=== PATIENT | male | born 1970 | race Caucasian/White ===

== ENCOUNTER 2021-02-07 08:46 | Emergency (ER) | payer OTHER, SELFPAY ==
--- NOTE | 2021-02-07 09:19 | XR_ITS ---
WS: [id number] Portable AP upright chest, 02/07/2021 Clinical Data: cough, COVID Comparison: None. Findings: No nodules, masses or effusions are seen. The heart is normal. The pulmonary vascularity is not increased. No pneumonia or pneumothorax is seen. The aortic arch and descending thoracic aorta s how tortuosity. The diaphragms are flattened. XR/XR chest 1V portable [id number] Impression: Atherosclerosis and hyperinflation.
[2021-02-07 10:01] VITALS: BP 146/88; PULSE 84; RESP 18; TEMP 36.8; O2SAT 95; BMI 33.1
--- NOTE | 2021-02-07 10:12 | ED_ITS ---
HPI - COVID General: Chief Complaint: COVID symptoms Stated Complaint: COVID + Time Seen by Provider: 02/07/21 10:00 Source: patient Mode of arrival: ambulatory Limitations: no limitations Triage information: Has fever, cough or shortness of breath . Exposure to COVID + person last 14 days History of Present Illness: HPI Narrative: Patient is a 50-year-old male who presents to ED today requesting Covid testing for Covid-like symptoms and positive exposure. Patient states his recently tested positive for Covid. Yesterday he began having low-grade fevers and body aches. Son arrives with patient who is also being seen for similar symptoms. MD complaint: has COVID symptoms Prior covid testing: no COVID 19 common symptoms: positive fever(s) and body aches; negative dyspnea, fatigue, headache(s), throat pain, nasal congestion, nausea, vomiting or diarrhea COVID 19 other sytmptoms: negative chest pain Severity: mild COVID Results: No Data to Display Review of Systems Const: Reports: fever(s) and body aches; Denies: fatigue or malaise Eyes: Denies: change in vision or photophobia ENMT: Denies: throat pain, odynophagia, nasal discharge, nasal congestion, post nasal drip or sinus pain Card: Denies: chest pain, palpitations, irregular heart rhythm, edema, syncope or pre-syncope Resp: Denies: dyspnea GI: Denies: abdominal pain, nausea, vomiting or diarrhea : Denies: dysuria or hematuria Musc: Denies: neck pain or back pain Skin/Breast: Denies: rash Neuro: Denies: headache(s), numbness in extremities, weakness in extremities, sensory changes or dizziness Physical Exam Const: COMMON NORMALS: no acute distress, patient oriented x3, no limitations, alert and well nourished GENERAL APPEARANCE: cooperative NUTRITIONAL APPEARANCE: overweight ORIENTATION/CONSCIOUSNESS: Yes awake, Yes oriented to person, Yes oriented to place and Yes oriented to time HENMT: COMMON NORMALS: normocephalic and atraumatic HEAD & SCALP: normocephalic and atraumatic Resp: COMMON NORMALS: normal respiratory effort and clear to auscultation bilaterally AUSCULTATION: clear to auscultation bilaterally Cardio: COMMON NORMALS: regular rate and regular rhythm RATE: regular rate RHYTHM: regular rhythm Extremity: COMMON NORMALS: no clubbing, cyanosis or edema, no calf tenderness and no pedal edema Neuro: COMMON NORMALS: patient oriented x3 SENSORIUM/ORIENTATION: Yes alert, Yes oriented to person, Yes oriented to place and Yes oriented to time Skin: COMMON NORMALS: no rashes or lesions noted GENERAL SKIN EXAM: no rashes or lesions noted Course Vital Signs: Vital signs: Vital Signs Temperature 98.3 F 02/07/21 10:01 Pulse Rate 84 02/07/21 10:01 Respiratory Rate 18 02/07/21 10:01 Blood Pressure 146/88 02/07/21 10:01 Pulse Oximetry 95 02/07/21 10:01 MDM - COVID MDM Narrative: Medical decision making narrative: Patient clinically appears in no acute distress. His vital signs are perfect. PCR COVID obtained. Patient states he doesn't want MCA. Will DC home with oral dexamethasone. Return to ED precautions given. Imaging Data: CXR: Radiologist's impression: [address] [address]YQft ReportSigned Patient: Mary Patel #: [id number]: [id number]#:[id number]/Sex: 50 / MADM Date: 02/07/21Loc: ERRoom/Bed :Attending Dr: Ordering Provider/Ordering MD: Ifeoma Rodas Date of Service: 02/07/21 Procedure(s): XR chest 1V portable [id number] Accession Number(s): [id number] Report Number: [id number] WS: [id number] Portable AP upright chest, 02/07/2021 Clinical Data: cough, COVID Comparison: None. Findings: No nodules, masses or effusions are seen. The heart is normal. The pulmonary vascularity is not increased. No pneumonia or pneumothorax is seen. The aortic arch and descending thoracic aorta show tortuosity. The diaphragms are flattened. XR/XR chest 1V portable [id number] Impression: Atherosclerosis and hyperinflation. Dictated By:Mely Sow MDSigned By:Mely Sow MDSigned Date/Time:02/07/21 1046DD/ 1045 COVID Results: No Data to Display Monoclonal Antibody - ED Inclusion/Exclusion Criteria age >/= 12 years, weight >/= 40kg /88lbs and symptom onset less than 10 days ago obesity (BMI >25 or 85%til for age) not requiring hospitalization, not requiring oxygen (if not chronically on oxygen) and no increase oxygen requirement (if chronically on oxygen) Plan for treatment If had positive direct antigen test for COVID, would meet criteria for Monoclonal Antibody infusion Date of symptom(s) onset: 02/06/21 If test comes back positive, re-evaluate for Monoclonal Antibody infusion Discharge Plan Discharge Patient Disposition: Home Clinical Impression: Suspected severe acute respiratory syndrome coronavirus 2 (SARS-CoV-2) infection Condition: Stable Prescriptions: New dexamethasone 6 mg tablet 6 mg PO DAILY Qty: 6 RF: 0 Discharge Orders: Discharge ED (Routine); Ordered 02/07/21 Ordered By: Ifeoma Rodas Patient Instructions: COVID-19 (Coronavirus Disease 2019) (ED) Coding Level of Care Code ED Trimmer Operator Three Knife for Lisbethg Fwd Exam Detailed
[2021-02-07 10:55] VITALS: O2SAT 95
[2021-02-07 10:56] VITALS: BP 146/88; PULSE 84; RESP 18; TEMP 36.8; O2SAT 95
[2021-02-07 12:37] LABS: Adenovirus Not Detected (NOT DETECT); Chlamydia Pneumoniae Not Detected (NOT DETECT); Coronavirus 229E,HKU1,NL63,OC4 Not Detected (NOT DETECT); Human Metapneumovirus Not Detected (NOT DETECT); Human Rhinovirus/Enterovirus Not Detected (NOT DETECT); Influenza A Not Detected (NOT DETECT); Influenza A H1 Not Detected (NOT DETECT); Influenza A H1-2009 Not Detected (NOT DETECT); Influenza A H3 Not Detected (NOT DETECT); Influenza B Not Detected (NOT DETECT); Mycoplasma Pneumoniae Not Detected (NOT DETECT); Parainfluenza Virus Type 1 Not Detected (NOT DETECT); Parainfluenza Virus Type 2 Not Detected (NOT DETECT); Parainfluenza Virus Type 3 Not Detected (NOT DETECT); Parainfluenza Virus Type 4 Not Detected (NOT DETECT); Respiratory Syncytial Virus A Not Detected (NOT DETECT); Respiratory Syncytial Virus B Not Detected (NOT DETECT); SARS-COV-2 Detected (NOT DETECT)
== END 2021-02-07 10:59 | disposition home or self-care (01) ==
PROVIDERS: Emergency Provider Physician Assistant
DX: U07.1 COVID-19 (principal)
CPT/HCPCS: 71045; 87635; 99282

== ENCOUNTER 2021-08-05 06:15 | Day surgery (SDC) | payer BC, SELFPAY ==
[2021-08-03 08:51] VITALS: BMI 29.3
--- NOTE | 2021-08-05 06:17 | P.HP_ITS ---
Same Day Surgery H&P Indication for Procedure/HPI DATE OF PROCEDURE: August 05, 2021 CHIEF COMPLAINT/INDICATIONFOR SURGICAL PROCEDURE: Screening colonoscopy PREOP DIAGNOSIS: Screening colonoscopy PLANNED PROCEDURE: Operation Date: 08/05/21 07:30 Proposed Procedures p Colonoscopy 59159/R19.4(Not Applicable) - Cole Dill MD 06/20/2021 This is a pleasant 50 years old gentleman referred to my practice with history of nonintentional weight loss losing about 2 pounds a week.? Gives history of colon cancer of his mom at the age of 60s and his grandmother as well, he reports that his stool smells very bad.? And he never had a colonoscopy before. Interim history 08/05/2021 Patient comes today for screening colonoscopy. Patient reports today that he has been having diarrhea and loose stools whenever he eats particularly to greasy food. Additionally he reports that his sister had multiple polyps at the age of 50. ROS All systems have been reviewed negative except as for the above or per problem list. Medications/Allergies* Home Medications Medication Instructions Recorded Confirmed Type magnesium 30 mg tablet 30 mg PO DAILY 08/03/21 08/03/21 History potassium 75 mg tablet 75 mg PO DAILY 08/03/21 08/03/21 History Allergies/Adverse Reactions Allergy/AdvReac Type Severity Reaction Status Date / Time No Known Allergies Allergy Verified 06/22/21 09:58 Pertinent History/Comorbid Conditions* Family History (Updated 06/20/21 @ 09:02 by Kacie Wise MA) Cancer Social History Smoking and tobacco status: current every day smoker Pertinent Exam Findings alert, oriented x 3, regular rate & rhythm and procedure specific exam findings (Abdominal examination nontender nondistended soft) Recommendations Surgery/Procedure today (Colonoscopy with possible biopsy and we will plan for sampling of stools as well.) Coding Level of Care Code Acute Patient Access Specialist for Jennifer Bradshaw
[2021-08-05 06:39] VITALS: BP 113/67; PULSE 60; RESP 18; TEMP 36.1; O2SAT 95
[2021-08-05] MEDS: sodium chloride 0.9% 1,000 ML 30 ML IV (06:47)
--- NOTE | 2021-08-05 06:48 | P.ANESASSM_ITS ---
Pre-Anesthetic Assessment Height/Weight: Height 1.93 m Weight 109.316 kg Temp Pulse Resp BP Pulse Ox 97 F L 60 18 113/67 95 08/05/21 06:39 08/05/21 06:39 08/05/21 06:39 08/05/21 06:39 08/05/21 06:39 Preop Diagnosis: Family history of colon cancer Operation Date: 08/05/21 07:30 Proposed Procedures p Colonoscopy 51266/R19.4(Not Applicable) - Cole Dill MD Familial anesthetic complications: none Was Beta Estrella taken within 24 hours: N/A Was Clonidine taken within 24 hours: N/A Last intake: Intake Last Liquid Date 08/05/21 Last Liquid Time 22:00 Last Solid Date 08/04/21 Last Solid Time 19:00 Social Tobacco and No alcohol Exam alert and oriented x 3 Airway Submandibular: within normal limits Cervical ROM: within normal limits Mallampati: Class I Dentition: false History/ROS No significant history except as noted Pulmonary None reported CV/HEM None reported None reported Hepatic None reported GI Gastroesophageal Reflux Disease Metabolic None reported Musc/skel None reported Neuropsych None reported Anesthetic Plan ASA status: 2 Anesthesia: Anesthesia Evaluation and MAC Risk of > 500 ml blood loss (7ml/kg in children): No Medications/Allergies Home Medications Medication Instructions Recorded Confirmed Last Taken Type magnesium 30 mg tablet 30 mg PO DAILY 08/03/21 08/03/21 08/03/21 History potassium 75 mg tablet 75 mg PO DAILY 08/03/21 08/03/21 08/03/21 History Allergies Allergy/AdvReac Type Severity Reaction Status Date / Time No Known Allergies Allergy Verified 06/22/21 09:58 [facility] Anesthesia Family History Other Cancer Social History Smoking and tobacco status: current every day smoker Data Anesthesia Cardiac Studies: No Data to Display
[2021-08-05 07:18] VITALS: BP 109/71; PULSE 62; RESP 16; TEMP 36.1; O2SAT 99
--- NOTE | 2021-08-05 09:45 | ANE.PACU2 ---
Inpatient post-anesthesia follow up: Airway intact: Yes Vital signs: Temperature 97.0 F Pulse Rate 62 Respiratory Rate 16 Blood Pressure 109/71 Pulse Oximetry 99 Oxygen Delivery Me thod Room Air Oxygen Flow Rate Fraction of Inspir ed Oxygen Hydration adequate: Yes Nausea and vomiting: No Pain level: 1 Mental status: Baseline
== END 2021-08-05 07:40 | disposition home or self-care (01) ==
PROVIDERS: PCP Family Medicine; Visit Provider Surgery
PROC: 0DJD8ZZ Inspection of Lower Intestinal Tract, Via Natural or Artificial Opening Endoscopic (ICD-10-PCS; CPT 45378; principal; 2021-08-05 07:30)
DX: Z12.11 Encounter for screening for malignant neoplasm of colon (principal); F17.210 Nicotine dependence, cigarettes, uncomplicated; D12.2 Benign neoplasm of ascending colon; K21.9 Gastro-esophageal reflux disease without esophagitis
CPT/HCPCS: 45380; 82274; 83630; 87493; 87506; 88305; J2704; J7030

== ENCOUNTER → 2021-09-19 08:13 | Outpatient (BNVA) | payer BC, SELFPAY | PROVIDERS: PCP Family Medicine; Visit Provider Specialist | DX: M25.561 Pain in right knee (principal); M25.562 Pain in left knee; M17.0 Bilateral primary osteoarthritis of knee | CPT/HCPCS: 73560; 73565 ==

== ENCOUNTER 2021-11-21 07:12 | Outpatient (CLI) | payer BC, SELFPAY ==
--- NOTE | 2021-11-21 07:15 | US_ITS ---
WS: [id number] RIGHT UPPER QUADRANT ULTRASOUND HISTORY: R19.7 - Diarrhea, unspecified COMPARISON: None available. Liver: 16.1 cm in length. Normal size liver. No bile duct dilatation or mass. Portal Vein: Normal hepatopetal flow with monophasic waveform. Gallbladder: Gallbladder is distended with stones. Large amount shadowing. Gallbladder is probably co ntracted around the stones is very little fluid distended lumen is noted. Gallbladder wall is top nor mal at 3 mm. CBD: 0.5 cm Pancreas: Body and head are normal. The tail is obscured by bowel gas. Right kidney: 12.0 cm in length. Normal size and echogenicity. No hydronephrosis or mass. Aorta and IVC: Unremarkable abdominal aorta and IVC. No ascites. US/US gall bladder [id number] IMPRESSION: 1. Stone filled gallbladder with a large amount shadowing. No gallbladder wall thickening or pericholecystic fluid. 2. No bile duct dilatation.
== END 2021-11-21 07:13 | disposition home or self-care (01) ==
PROVIDERS: PCP Family Medicine; Visit Provider Surgery
DX: R19.7 Diarrhea, unspecified (principal); K80.20 Calculus of gallbladder without cholecystitis without obstruction
CPT/HCPCS: 76705

== ENCOUNTER 2021-11-25 15:46 | Outpatient (CLI) | payer BC, SELFPAY ==
--- NOTE | 2021-11-25 16:00 | MR_ITS ---
WS: [id number] MRI RIGHT KNEE NONCONTRAST TECHNIQUE: Axial PD, coronal PD fat sat, coronal PD, sagittal PD, and sagittal PD fat-sat images obta ined. CLINICAL INFORMATION: Right knee pain COMPARISON: None. FINDINGS: Advanced tricompartmental arthritis worse in the medial joint compartment. Hypertrophic changes along the joint line. Hypertrophic patella. Chronic lateral subluxation/dislocation of the patella. Multip le calcified suprapatellar and intra-articular loose bodies. Degenerative intra-articular osteochondr al bodies versus synovial chondromatosis. Distal quadriceps and patella tendons are intact. ACL is intact. Mucoid degeneration of the ACL. Norm al PCL. Complex tear involving the posterior horn medial meniscus extending to the articular surface with blunting of the medial meniscus. Peripheral extrusion of the medial meniscus. Lateral meniscus i s better preserved. Chronic appearing lateral subluxation/dislocation of the patella with advanced chondromalacia patella . Associated subchondral edema. Edema in the underlying femoral condyle. Grade IV chondromalacia invo lving the medial and lateral joint compartments. Normal popliteal fossa. Normal lateral collateral li gament. Normal medial collateral ligament. MR/MR knee RT wo con* [id number] IMPRESSION: 1. Advanced tricompartmental arthritis with [id number]-dw-mjhg articulation medial j oint compartment. Moderate suprapatellar effusion. Degenerative changes advance d for patient this age. 2. 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 3. Chronic appearing lateral subluxation/dislocation of the patella with advan mariana chondromalacia patella. 4. Underlying edema in the abutting femoral condyle deep to the patella. 5. Grade IV chondromalacia involving the medial and lateral joint compartments . 6. Complex tear involving the posterior horn medial meniscus extending to the articular surface with blunting of the medial meniscus. 7. Advanced hypertrophic changes along the joint line with periarticular gangl ion cysts 8. ACL and PCL are intact. Mucoid degeneration of the ACL. Outbridge grading: grade IV: full-thickness cartilage loss with underlying bone reactive changes
== END 2021-11-25 15:47 | disposition home or self-care (01) ==
LOC: RAD 15:53
PROVIDERS: PCP Family Medicine; Visit Provider Specialist
DX: M13.861 Other specified arthritis, right knee (principal); S83.241A Other tear of medial meniscus, current injury, right knee, initial encounter; S83.011A Lateral subluxation of right patella, initial encounter; X58.XXXA Exposure to other specified factors, initial encounter; M22.41 Chondromalacia patellae, right knee
CPT/HCPCS: 73721

== ENCOUNTER → 2021-12-07 09:26 | Outpatient (BNVA) | payer BC, SELFPAY | PROVIDERS: PCP Family Medicine; Visit Provider Surgery | DX: R19.7 Diarrhea, unspecified (principal) | CPT/HCPCS: 36415; 80053; 85025 ==

== ENCOUNTER 2021-12-26 08:26 | Day surgery (SDC) | payer BC, SELFPAY ==
[2021-12-23 12:41] VITALS: BMI 26.7
[2021-12-26] VITALS (10 sets, daily range): BP systolic 117–155; BP diastolic 64–99; PULSE 47–74; RESP 16–20; TEMP 36.1–36.5; O2SAT 94–98
[2021-12-26] MEDS: sodium chloride 0.9% 1,000 ML 30 ML IV (08:57)
[2021-12-26] MEDS: acetaminophen 1,000 MG/100 ML PIGGYBACK 400 MG IV (08:57)
[2021-12-26] MEDS: heparin 5,000 unit/mL INJ 1 mL 3000 UNIT SUBCUT (08:58)
--- NOTE | 2021-12-26 09:17 | P.ANESASSM_ITS ---
Pre-Anesthetic Assessment Height/Weight: Height 1.93 m Weight 99.79 kg Temp Pulse Resp BP Pulse Ox O2 Del Method 97.7 F 54 L 16 117/64 98 12/26/21 08:46 12/26/21 08:46 12/26/21 08:46 12/26/21 08:46 12/26/21 08:46 12/26/21 08:47 Preop Diagnosis: Symptomatic cholelithiasis Operation Date: 12/26/21 10:15 Proposed Procedures p Laparoscopic Cholecystectomy 98561,R19.7(Not Applicable) - Cole Dill MD Familial anesthetic complications: verbally aggressive upon emergence Was Beta Estrella taken within 24 hours: N/A Was Clonidine taken within 24 hours: N/A Last intake: Intake Last Liquid Date 12/25/21 Last Liquid Time 21:30 Last Solid Date 12/22/21 Last Solid Time 12:00 Social Tobacco and No alcohol Exam alert, oriented x 3, clear to auscultation bilaterally and regular rate & rhythm Airway Mallampati: Class II Dentition: false GI Gastroesophageal Reflux Disease [facility] [place] occassiona muscle cramps (takes magnesium and potassium prn) Anesthetic Plan ASA status: 2 Anesthesia: General Risk of > 500 ml blood loss (7ml/kg in children): No Medications/Allergies Home Medications Medication Instructions Recorded Confirmed Last Taken Type magnesium 30 mg tablet 30 mg PO DAILY 08/03/21 12/23/21 08/03/21 History potassium 75 mg tablet 75 mg PO DAILY 08/03/21 12/23/21 08/03/21 History Allergies Allergy/AdvReac Type Severity Reaction Status Date / Time No Known Allergies Allergy Verified 12/23/21 12:39 Current Medications Generic Name Dose Route Start Last Admin Trade Name Freq PRN Reason Stop Dose Admin Sodium Chloride 1,000 mls @ 30 mls/hr 12/26/21 08:30 12/26/21 08:57 Sodium Chloride 0.9% IV 12/27/21 08:29 30 mls/hr .Q24H JESSICA Administration PFSH Anesthesia Medical History Colon polyp Family History Other Cancer Social History Smoking and tobacco status: current every day smoker Data Anesthesia Cardiac Studies: No Data to Display
--- NOTE | 2021-12-26 09:53 | W.PM.OPSUD ---
Surgery/Procedure H&P Update DATE OF PROCEDURE: December 26, 2021 DATE H&P PERFORMED: 12/07/21 H&P UPDATE INFORMATION: I have reviewed H&P completed within last 30 days, I have examined patient prior to procedure and Changes to prior documentation as noted here (Patient lost about 8 pounds on liquid protein diet) PREOP DIAGNOSIS: Symptomatic cholelithiasis PRIMARY INDICATION FOR PROCEDURE: The same PLANNED PROCEDURE: Operation Date: 12/26/21 10:15 Proposed Procedures p Laparoscopic Cholecystectomy 13646,R19.7(Not Applicable) - Cole Dill MD
[2021-12-26] MEDS: ampicillin-sulbactam 3 GM in sodium chloride 0.9% (plus) 50 ML IV (10:20)
[2021-12-26] MEDS: lidocaine 1% INJ 50 mL 10 ML INJECTION (10:42)
--- NOTE | 2021-12-26 11:35 | PM.OP ---
Operative Report Date of procedure: December 26, 2021 Pre-op diagnosis: Preop Diagnosis Symptomatic cholelithiasis Post-op diagnosis: Chronic calculus cholecystitis and fatty liver Procedure done: Laparoscopic cholecystectomy Implants: Surgicel at the gallbladder fossa Specimens removed/disposition: Gallbladder and contents Surgeon: Cole Dill MD Lime Supervisor: Surgical techbrie Porter Circulating nurses Caren and Tangela Anesthesia: General (pickers material handlers Jakub Diaz and Kady) Estimated blood loss (mL): 25 IV fluids (mL): 700 Procedure: Patient was identified in the holding area and taken back to the operative suite, placed in supine position intubated by anesthesia . Time-out was done verifying the patient's name/date of /planned procedure and destination after the procedure, all were in agreement. SCDs confirmed to be functioning, preoperative antibiotics administered per protocol, and beta arabella protocol was confirmed. Patient was appropriately secured to the table, footboard was applied to the OR table, before prep and drape anesthesia was asked to tilt the table back and forth to make sure that the patient is appropriately secured and she was. Prep and drape of the abdomen was done under the usual sterile technique, followed by that supraumbilical skin incision,skin incision was done by a 15 blade knife, and stay sutures were applied to the fascia and Elaine trocar technique was used to enter the abdominal without injuring any abdominal viscera, started by low flow gas insufflation followed by a high flow, started with a 10 mm laparoscope and under direct vision there was no evidence of any injuries, the scope then switched to a 30? ,10 millimeter scope and under direct visualization 5 millimeter trocar was inserted in the epigastric region followed by two 5 mm trocars were inserted in the right upper quadrant that was done after injection of local lidocaine 2% at all incision sites. Gallbladder showed chronic cholecystitis and Fatty Liver, omental adhesions attached to the gallbladder. Patient was then positioned in the head up and tilted to the left. Ratcheted forceps were introduced into the lateral most 5mm port and was applied unto the fundus of the gallbladder cephalad and using Bullet forceps the infundibulum of the gallbladder was retracted laterally. Using [place] forceps then L-hook cautery to take down omental adhesions under direct visualization and following that dissect the peritoneum overlying the Calot's triangle which was then opened medially and laterally until the cystic duct and the cystic artery were skeletonized. Dissection was carried along the body of the gallbladder and after ensuring critical view of safety was identfied. Cystic duct and cystic artery where seen connected to the gallbladder. Clips were applied on the cystic duct towards the common bile duct 1 towards the gallbladder then divided is in sharp scissors, 3 clips were then applied onto the cystic artery and 1 towards the gallbladder and divided by sharp scissors. Dissection was then carried along of the gallbladder from the gallbladder fossa using cautery as well as sharp dissection with heat energy. The gallbladder then was dissected out from the gallbladder fossa totally , cholecystectomy was then achieved and was placed in an Endo Catch bag and then retrieved from the Elaine trocar site under direct visualization using a 5 mm 30? scope through the epigastric trocar, specimen was then passed to the circulating nurse to go for permanent pathology,irrigation and hemostasis was done to the gallbladder fossa after hemostasis was secured yet I had to use sheets of Surgicel at the gallbladder fossa for finalization of hemostasis, final survey laparoscopy was done that showed no injuries. Suction irrigation was obtained The supraumbilical fascial defect was then closed using interrupted number one PDS sutures using a fascial closure device ;Hima Cedeno under direct visualization following that Gas was allowed to deflate,Trocars were then taken out under direct vision there was no evidence of bleeding. Specimen was passed to the circulating nurse for permanent pathology. No drains were placed and the supraumbilical incision as well as all trocar sites were closed by 3/0 Vicryl followed by 4-0 Monocryl to approximate the skin edges of the incisions , dressing was applied in the form of surical glue and the patient patient got extubated and was taken to recovery area in a stable condition. Count of sponges,needles and instruments were completed at the end of the procedure I was present for the whole entire procedure.
[2021-12-26] MEDS: fentaNYL 50 mcg/mL INJ 2mL IVP (11:58)
[2021-12-26] MEDS: HYDROcodone-acetaminophen 5-325 mg Tablet 1 TAB PO (12:40)
--- NOTE | 2021-12-26 13:16 | ANE.PACU2 ---
Inpatient post-anesthesia follow up: Airway intact: Yes Vital signs: Temperature 97.0 F Pulse Rate 55 Respiratory Rate 18 Blood Pressure 152/98 Pulse Oximetry 94 Oxygen Delivery Me thod Room Air Oxygen Flow Rate Fraction of Inspir ed Oxygen Hydration adequate: Yes Nausea and vomiting: No Pain level: 1 Mental status: Baseline
== END 2021-12-26 13:00 | disposition home or self-care (01) ==
PROVIDERS: PCP Family Medicine; Visit Provider Surgery
PROC: 0FT44ZZ Resection of Gallbladder, Percutaneous Endoscopic Approach (ICD-10-PCS; CPT 47562; principal; 2021-12-26 10:05)
DX: K80.10 Calculus of gallbladder with chronic cholecystitis without obstruction (principal); K76.0 Fatty (change of) liver, not elsewhere classified; K21.9 Gastro-esophageal reflux disease without esophagitis; F17.210 Nicotine dependence, cigarettes, uncomplicated
CPT/HCPCS: 47562; 88304; J0131; J0295; J1100; J1170; J1644; J2405; J2704; J3010; J3490; J7030

== ENCOUNTER 2024-02-02 13:46 | Emergency (ER) | payer OTHER, SELFPAY ==
[2024-02-02 14:01] VITALS: BP 145/81; PULSE 98; RESP 18; TEMP 36.5; O2SAT 98; BMI 30.2
--- NOTE | 2024-02-02 15:22 | XRR_ITS ---
PROCEDURE INFORMATION: Exam: XR Right Shoulder Exam date and time: 02/02/2024 3:30 PM Age: 53 years old Clinical indication: Right; Patient HX: RT arm/shoulder pain after falling into truck; Limited rom; Additional info: Fall, pain, decreased rom TECHNIQUE: Imaging protocol: Radiologic exam of the right shoulder. Views: 2 or more views. COMPARISON: [place] [id number] 02/02/2024 3:30 PM FINDINGS: Bones/joints: Osseous structures are intact. Negative for fracture or dislocation. Soft tissues: Normal. XR/XR shoulder RT min 2V* [id number] IMPRESSION: No acute findings.
--- NOTE | 2024-02-02 15:22 | XRR_ITS ---
PROCEDURE INFORMATION: Exam: XR Right Humerus Exam date and time: 02/02/2024 3:30 PM Age: 53 years old Clinical indication: Pain; Shoulder; Right; Additional info: Fall, pain, decreased rom TECHNIQUE: Imaging protocol: Radiologic exam of the right humerus. Views: 2 or more views. COMPARISON: CR (CHEST, ) 02/02/2024 3:30 PM FINDINGS: Bones/joints: Osseous structures are intact. Negative for fracture. Soft tissues: Normal. XR/[place] [id number] IMPRESSION: No acute findings.
--- NOTE | 2024-02-02 16:15 | ED_ITS ---
HPI - Extremity Problem General: Chief complaint: Extremity Injury, Upper Stated complaint: pain in rt arm - unable to raise arm Time Seen by Provider: 02/02/24 15:10 Source: patient Mode of arrival: ambulatory Limitations: no limitations History of Present Illness: Patient presents emergency department today for evaluation and treatment of 2 different issues. Patient reports that today while putting diesel in his semitruck, went to step over the hose attaching the nozzle to the gas tank and began to fall. States he knows he has a bad knee and tried to lean forward to catch himself with his hands on his truck but, states that his knee then hyper extended and he rotated. States that when he rotated, he then impacted his right anterior lateral shoulder region on the wheel well. Patient states for a brief amount of time he felt a little tingling in the hand but has resolved. He indicates decreased range of motion. States that he has to rotate his arm around in an effort to try and raise it up. Denies any previous injuries to this shoulder in the past. No previous surgeries. He also then mentions that he got some dry rice husks blown into his left eye yesterday. The eye is red and irritated today but no signs of draining, tearing, or inability to keep the eye open. Patient has not taken any medications today for any of his symptoms. Related Data Home Medications Medication Instructions Recorded Confirmed magnesium 30 mg tablet 30 mg PO DAILY 08/03/21 01/13/22 potassium 75 mg tablet 75 mg PO DAILY 08/03/21 01/13/22 Previous Rx's Medication Instructions Recorded hydrocodone 5 mg-acetaminophen 325 1 tab PO Q6H PRN pain #28 tabs 12/26/21 mg tablet erythromycin 5 mg/gram (0.5 %) eye 1 applic ophthalmic (eye) TID #3.5 02/02/24 ointment (3.5 gram tube) grams Allergies Allergy/AdvReac Type Severity Reaction Status Date / Time No Known Allergies Allergy Verified 01/13/22 13:18 Review of Systems General: Reports: 10 or more systems reviewed and unremarkable except in HPI and below PFSH ED PFSH: Medical History Cholelithiasis Colon polyp Family History Other Cancer Social History Smoking and tobacco/nicotine status: current some day tobacco/nicotine user cigarettes [ Other cigarette details: Working on quitting. ] Physical Exam Const: COMMON NORMALS: no acute distress, patient oriented x3 and alert HENMT: COMMON NORMALS: normocephalic, atraumatic and hearing grossly normal bilaterally HEAD & SCALP: normocephalic and atraumatic Eye: COMMON NORMALS: Equal, round and reactive pupils present and EOMs intact bilaterally PUPIL: Yes Equal, round and reactive pupils present OTHER: Patient with moderate injections to the conjunctiva. No signs of matting or draining. No noticeable swelling or erythema of the upper or lower lids. No orbital edema. Patient's eye examination revealed no signs of any foreign material within the upper or lower lid. No signs of internal or external styes. No chalazion. Patient's wood lamp examination does reveal a conjunctival abrasion of the lateral portion of the patient's left eye. No corneal abrasion noted. Neck/C-Spine: COMMON NORMALS: full ROM and no JVD Lymph: LYMPHATIC: no lymphadenopathy noted Resp: COMMON NORMALS: normal respiratory effort, No retractions and No use of accessory muscles Cardio: COMMON NORMALS: no JVD and regular rate RATE: regular rate Extremity: NARRATIVE EXTREMITY EXAM: Patient does have range of motion to the right shoulder though does become impaired around 70 to 80 degrees. Patient has to internally rotate the arm to try and raise it up-pain with external rotation. Patient with tenderness on palpation to the posterior lateral portion of the right shoulder. Nonspecific tenderness to the mid humerus and proximal humeral region. Full flexion extension capabilities of the fingers on the right hand. Pronation and supination intact without difficulty. Neuro: COMMON NORMALS: patient oriented x3 SENSORIUM/ORIENTATION: Yes alert Psych: COMMON NORMALS: mental status grossly normal, Normal thought process present, cooperative and normal affect THOUGHT PROCESS: Normal thought process present Skin: COMMON NORMALS: no rashes or lesions noted and turgor normal GENERAL SKIN EXAM: no rashes or lesions noted and turgor normal Course Vital Signs: Vital signs: Vital Signs Temperature 97.7 F 02/02/24 14:01 Pulse Rate 98 02/02/24 14:01 Respiratory Rate 18 02/02/24 14:01 Blood Pressure 145/81 02/02/24 14:01 Pulse Oximetry 98 02/02/24 14:01 Oxygen Delivery Me thod Room Air 02/02/24 14:01 MDM - Extremity (Nontraumatic) Medical Decision Making Patient's x-ray showed no signs of acute bony abnormality however, given the patient's limited range of motion at a certain point and mechanism of injury, most likely has a connective tissue or rotator cuff type injury. Did discuss this with him. Discussed with him that depending on the severity of the injury, he may require time, physical therapy, or even consideration for procedure but, would need to see orthopedics for follow-up to discuss. I will place a referral on his behalf for this follow-up to discuss. In the meantime, patient was given a sling with instructions use Tylenol, ibuprofen, and ice at the joint. On patient's eye examination, it does find that he has a conjunctival abrasion. Discussed this finding with him. We will provide him erythromycin ointment from the emergency department as their preferred pharmacy will most likely not be open until Sunday. The rest of their medication can be sent to that pharmacy to be picked up and continued on Sunday. Recommend reevaluation for any worsening of symptoms including redness of the orbit, change in vision, draining or matting of the lash lines or fevers. Patient verbalizes understanding and agreement to treatment plan. Differential Diagnosis Unlikely herpes zoster, gout, cellulitis, superficial thrombophlebitis or deep venous thrombosis of upper extremity Lab Data Radiology Impressions Humerus X-Ray 02/02/24 15:22 IMPRESSION: No acute findings. Shoulder X-Ray 02/02/24 15:22 IMPRESSION: No acute findings. All radiology interpretation(s) finalized by discharge Discharge Plan Discharge Patient Disposition: Home Clinical Impression: Contusion of right shoulder or upper extremity, Sprain of right shoulder, Abrasion of conjunctiva, left Condition: Stable Prescriptions: New erythromycin 5 mg/gram (0.5 %) ointment 1 applic ophthalmic (eye) TID Qty: 3.5 0RF No Action potassium 75 mg Tablet 75 mg PO DAILY magnesium 30 mg Tablet 30 mg PO DAILY hydrocodone-acetaminophen 5-325 mg tablet 1 tab PO Q6H PRN (Reason: pain) Qty: 28 0RF Discharge Orders: Discharge ED (Routine); Ordered 02/02/24 Ordered By: Julia Verma Referrals: Mare Tariq, [Primary Care Provider] - Discharge Diet: Usual diet Discharge Activity: Limit activity as instructed Patient Instructions: Rotator Cuff Injury (ED), Corneal Abrasion (ED), Shoulder Pain (ED) Activity Restrictions/Additional Instructions: X-ray today was read negative for signs of acute bony abnormality. However, based on your mechanism of injury and limited range of motion I think you may have injured your rotator cuff. I have requested a follow-up appointment be made on your behalf with orthopedics to further evaluate for potential soft tissue injury. They should call you to discuss making an appointment. In the meantime, you may wish to apply ice for 15 to 20 minutes every couple of hours and use Tylenol and ibuprofen for discomfort. Use the sling for the next few days but, be sure you take your arm out and go through range of motion as best as possible every few hours to prevent acute stiffening of the joint. Your eye examination today shows a scratch on the outside portion of your eye-not affecting your cornea. Unfortunately, I do not have an informational packet about conjunctival abrasions-only corneal abrasions. You do not have a corneal abrasion but, a lot of the information does correlate. I am giving you some antibiotic ointment which will help provide some relief of irritation symptoms and, help prevent any infection from developing. Use this medication for about 1 week. If you are not noticing improvement of your symptoms by that time you need to be seen and reevaluated. Otherwise, if you do have an eye doctor, you may schedule a follow-up appointment with them. Coding Level of Care Code ED Plant And Equipment Worker for Jennifer Bradshaw
[2024-02-02] MEDS: tetracaine 0.5% Op Soln 4 mL Btl 1 DROP EYE-LEFT (16:23)
[2024-02-02] MEDS: HYDROcodone-acetaminophen 5-325 mg Tablet 1 TAB PO (16:24)
[2024-02-02] MEDS: fluorescein 1 mg Strip EYE-LEFT (16:24)
--- NOTE | 2024-02-02 17:43 | ED_ITS ---
HPI - Extremity Problem General: Chief complaint: Extremity Injury, Upper Stated complaint: pain in rt arm - unable to raise arm Time Seen by Provider: 02/02/24 15:10 Source: patient Mode of arrival: ambulatory Limitations: no limitations Related Data Home Medications Medication Instructions Recorded Confirmed magnesium 30 mg tablet 30 mg PO DAILY 08/03/21 01/13/22 potassium 75 mg tablet 75 mg PO DAILY 08/03/21 01/13/22 Previous Rx's Medication Instructions Recorded hydrocodone 5 mg-acetaminophen 325 1 tab PO Q6H PRN pain #28 tabs 12/26/21 mg tablet erythromycin 5 mg/gram (0.5 %) eye 1 applic ophthalmic (eye) TID #3.5 02/02/24 ointment (3.5 gram tube) grams Allergies Allergy/AdvReac Type Severity Reaction Status Date / Time No Known Allergies Allergy Verified 01/13/22 13:18 [facility] ED PFSH: Medical History Cholelithiasis Colon polyp Family History Other Cancer Social History Smoking and tobacco/nicotine status: current some day tobacco/nicotine user cigarettes [ Other cigarette details: Working on quitting. ] Course 2 Vital Signs: Vital signs: Vital Signs Temperature 97.7 F 02/02/24 14:01 Pulse Rate 98 02/02/24 14:01 Respiratory Rate 18 02/02/24 14:01 Blood Pressure 145/81 02/02/24 14:01 Pulse Oximetry 98 02/02/24 14:01 Oxygen Delivery Me thod Room Air 02/02/24 14:01 MDM - Extremity (Nontraumatic) Lab Data Radiology Impressions Humerus X-Ray 02/02/24 15:22 IMPRESSION: No acute findings. Shoulder X-Ray 02/02/24 15:22 IMPRESSION: No acute findings. Discharge Plan Discharge Patient Disposition: Home Clinical Impression: Contusion of right shoulder or upper extremity, Sprain of right shoulder, Abrasion of conjunctiva, left Condition: Stable Prescriptions: New erythromycin 5 mg/gram (0.5 %) ointment 1 applic ophthalmic (eye) TID Qty: 3.5 0RF No Action potassium 75 mg Tablet 75 mg PO DAILY magnesium 30 mg Tablet 30 mg PO DAILY hydrocodone-acetaminophen 5-325 mg tablet 1 tab PO Q6H PRN (Reason: pain) Qty: 28 0RF Discharge Orders: Discharge ED (Routine); Ordered 02/02/24 Ordered By: Julia Verma Referrals: Mare Tariq, [Primary Care Provider] - Discharge Diet: Usual diet Discharge Activity: Limit activity as instructed Patient Instructions: Rotator Cuff Injury (ED), Corneal Abrasion (ED), Shoulder Pain (ED) Activity Restrictions/Additional Instructions: X-ray today was read negative for signs of acute bony abnormality. However, based on your mechanism of injury and limited range of motion I think you may have injured your rotator cuff. I have requested a follow-up appointment be made on your behalf with orthopedics to further evaluate for potential soft tissue injury. They should call you to discuss making an appointment. In the meantime, you may wish to apply ice for 15 to 20 minutes every couple of hours and use Tylenol and ibuprofen for discomfort. Use the sling for the next few days but, be sure you take your arm out and go through range of motion as best as possible every few hours to prevent acute stiffening of the joint. Your eye examination today shows a scratch on the outside portion of your eye-not affecting your cornea. Unfortunately, I do not have an informational packet about conjunctival abrasions-only corneal abrasions. You do not have a corneal abrasion but, a lot of the information does correlate. I am giving you some antibiotic ointment which will help provide some relief of irritation symptoms and, help prevent any infection from developing. Use this medication for about 1 week. If you are not noticing improvement of your symptoms by that time you need to be seen and reevaluated. Otherwise, if you do have an eye doctor, you may schedule a follow-up appointment with them. Stand Alone Forms: Work/School Release Coding Level of Care Code ED Property Insurance Claims Examiner for Jennifer Bradshaw
[2024-02-02 18:27] VITALS: BP 141/83; PULSE 82; O2SAT 99
--- NOTE | 2024-02-04 07:54 | DCPLANNER ---
messaged ortho for er f/u
== END 2024-02-02 18:28 | disposition home or self-care (01) ==
PROVIDERS: Emergency Provider Physician Assistant; PCP Family Medicine
DX: S40.011A Contusion of right shoulder, initial encounter (principal); S43.401A Unspecified sprain of right shoulder joint, initial encounter; S05.02XA Injury of conjunctiva and corneal abrasion without foreign body, left eye, initial encounter; F17.210 Nicotine dependence, cigarettes, uncomplicated; W19.XXXA Unspecified fall, initial encounter
CPT/HCPCS: 73030; 73060; 99283

== ENCOUNTER → 2024-02-08 13:18 | Outpatient (BNVA) | payer OTHER, SELFPAY | PROVIDERS: PCP Family Medicine; Referring Provider Physician Assistant; Visit Provider Student in an Organized Health Care Education/Training Program | DX: S43.401A Unspecified sprain of right shoulder joint, initial encounter (principal); W18.49XA Other slipping, tripping and stumbling without falling, initial encounter | CPT/HCPCS: 73030 ==

== ENCOUNTER 2024-02-19 20:31 | Emergency (ER) | payer OTHER, SELFPAY ==
[2024-02-19 20:39] VITALS: BP 101/71; PULSE 54; RESP 18; TEMP 36.7; O2SAT 96; BMI 29.8
--- NOTE | 2024-02-19 20:39 | ECG_ITS ---
[facility] [employer] Test Date: 2024-02-19 Pat Name: Jean Patel Department: Room: Gender: Male Managing Partner: : 1970 Requested By: Genevieve King Order Number: [id number] Aparicio MD: Demetrius Sylvester M.D. Measurements Intervals [place] Rate: 58 P: 45 IN: 179 QRS: 34 QRSD: 149 T: 42 QT: 436 QTc: 430 Interpretive Statements SINUS BRADYCARDIA WITH SINUS ARRHYTHMIA RIGHT BUNDLE BRANCH BLOCK [120+ ms QRS DURATION, UPRIGHT V1, 40+ ms S IN I/aVL/V4/V5/V6] No previous ECG available for comparison Electronically Signed On 02-19-2024 21:11:41 FIELD CONTACT PERSON by Demetrius Sylvester M.D. [email or web address]
--- NOTE | 2024-02-19 20:48 | XRR_ITS ---
PROCEDURE INFORMATION: Exam: XR Chest Exam date and time: 02/19/2024 8:49 PM Age: 53 years old Clinical indication: Other: Palpitations TECHNIQUE: Imaging protocol: Radiologic exam of the chest. Views: 1 view. COMPARISON: CR XR chest 1V portable [id number] 02/07/2021 10:02 AM FINDINGS: Lungs: Unremarkable. No consolidation. Pleural spaces: Unremarkable. No pleural effusion. No pneumothorax. Heart/Mediastinum: Stable cardiomegaly. Bones/joints: Unremarkable. XR/XR chest 1V portable [id number] IMPRESSION: No acute abnormality.
--- NOTE | 2024-02-19 21:00 | ED_ITS ---
HPI - Chest Pain 2 General: Chief Complaint: Chest Pain Stated Complaint: LOW HR Time Seen by Provider: 02/19/24 20:32 History of Present Illness: 53-year-old man with no significant past medical history presents emergency room for having an episode of chest pain. He had discomfort in middle of his chest. checked his blood pressure and it was slightly elevated. When EMS arrived he had an episode of nausea and became bradycardic and slightly hypotensive. Heart rate is improving upon arrival here. Blood pressure is improving as well. As well as his chest pain symptoms. No cough. No diarrhea. No abdominal pain. Related Data Home Medications Medication Instructions Recorded Confirmed magnesium 30 mg tablet 30 mg PO DAILY 08/03/21 02/08/24 potassium 75 mg tablet 75 mg PO DAILY 08/03/21 02/08/24 Previous Rx's Medication Instructions Recorded hydrocodone 5 mg-acetaminophen 325 1 tab PO Q6H PRN pain #28 tabs 12/26/21 mg tablet erythromycin 5 mg/gram (0.5 %) eye 1 applic ophthalmic (eye) TID #3.5 02/02/24 ointment (3.5 gram tube) grams Allergies Allergy/AdvReac Type Severity Reaction Status Date / Time No Known Allergies Allergy Verified 02/19/24 20:44 Review of Systems 2 Narrative: Constitutional symptoms: Negative except as documented in HPI. Skin symptoms: Negative except as documented in HPI. Eye symptoms: Negative except as documented in HPI. ENMT symptoms: Negative except as documented in HPI. Respiratory symptoms: Negative except as documented in HPI. Cardiovascular symptoms: Negative except as documented in HPI. Gastrointestinal symptoms: Negative except as documented in HPI. Genitourinary symptoms: Negative except as documented in HPI. Musculoskeletal symptoms: Negative except as documented in HPI. Neurologic symptoms: Negative except as documented in HPI. Psychiatric symptoms: Negative except as documented in HPI. Endocrine symptoms: Negative except as documented in HPI. PFSH ED 2 PFSH: Medical History Cholelithiasis Colon polyp Family History Other Cancer Social History Smoking and tobacco/nicotine status: unknown if used tobacco/nicotine Physical Exam 2 Narrative: EXAM NARRATIVE: General: Alert, no acute distress. Skin: Warm, dry. Head: Normocephalic, atraumatic. Neck: Supple, trachea midline. Eye: Extraocular movements are intact. Ears, nose, mouth and throat: mucosa moist. Cardiovascular: Regular, slightly bradycardic, normal peripheral perfusion. Respiratory: Lungs are clear to auscultation, respirations are non-labored, breath sounds are equal, Symmetrical chest wall expansion. Gastrointestinal: Soft, Nontender, Non distended Musculoskeletal: Normal ROM, no deformity. Neurological: Alert and oriented, No focal neurological deficit observed. Psychiatric: Cooperative, appropriate mood & affect. Course 2 Vital Signs: Vital signs: Vital Signs Temperature 98.1 F 02/19/24 20:39 Pulse Rate 58 L 02/20/24 00:21 Respiratory Rate 16 02/20/24 00:21 Blood Pressure 110/55 02/20/24 00:21 Pulse Oximetry 98 02/20/24 00:21 Oxygen Delivery Me thod Room Air 02/19/24 22:01 MDM - Chest Pain Medical Decision Making Differential diagnosis for patient with chest pain includes but is not limited to and based on the above HPI, review of systems and physical exam: Pneumonia. unstable angina. angina. Acute coronary syndrome / [place]. Pulmonary embolism. Costochondritis / musculoskeletal. Pleurisy. Pericarditis. Esophageal spasm. Pancreatis. Cholecystitis. Orders placed to evaluate differential diagnosis based on the above differential, HPI and physical exam EKG: Time 2038. Rate 58. Sinus bradycardia No ST-T changes, no ectopy, right bundle branch block, This was reviewed and interpreted by myself the ER physician at 2044 Lab Review: Laboratory results were reviewed and interpreted by myself the emergency room physician. Lab work is unremarkable. Chest x-ray: No acute process. No infiltrate. No pneumothorax. This was reviewed and interpreted by myself the emergency room physician. I also reviewed the radiology report. I reviewed the patient's medical record. Reexamination: Patient remained stable. No increased work of breathing. No altered mental status. No focal motor deficits. No further chest pain. Assessment and plan: Noncardiac chest pain - Discharged home - Discussed plan with patient. Answered any questions. - Evaluation and treatment of this problem were appropriate in the emergency setting. Lab Data 02/19/24 20:52 02/19/24 20:52 Radiology Impressions Chest X-Ray 02/19/24 20:48 IMPRESSION: No acute abnormality. Laboratory Results WBC 13.06 10^3/uL (3.29-11.43) H 02/19/24 20:52 RBC 4.88 10^6/uL (3.85-5.65) 02/19/24 20:52 Hgb 14.90 g/dL (11.27-16.99) 02/19/24 20:52 Hct 44.3 % (37-53) 02/19/24 20:52 MCV 90.8 fl (82-101) 02/19/24 20:52 MCH 30.5 pg (27-33) 02/19/24 20:52 MCHC 33.6 g/dL (30-55) 02/19/24 20:52 RDW 12.2 % (12.1-15.1) 02/19/24 20:52 Plt Count 217 10^3/cmm (157-399) 02/19/24 20:52 MPV 9.8 fL (7.4-10.4) 02/19/24 20:52 Neut % (Auto) 37.2 % 02/19/24 20:52 Lymph % (Auto) 27.6 % 02/19/24 20:52 [place] % (Auto) 5.6 % 02/19/24 20:52 Eos % (Auto) 28.2 % 02/19/24 20:52 Baso % (Auto) 1.1 % 02/19/24 20:52 Neut # (Auto) 4.86 10^3/uL (1.8-7.7) 02/19/24 20:52 Lymph # (Auto) 3.6 10^3/uL (0.8-4.8) 02/19/24 20:52 [place] # (Auto) 0.7 10^3/uL (0.2-0.9) 02/19/24 20:52 Eos # (Auto) 3.7 10^3/uL (0.0-0.8) H 02/19/24 20:52 Baso # (Auto) 0.2 10^3/uL (0.0-0.1) H 02/19/24 20:52 Nucleated RBC % (auto) 0 % 02/19/24 20:52 Nucleated RBCs # 0.0 /100WBC 02/19/24 20:52 Sodium 137 mmol/L (136-145) 02/19/24 20:52 Potassium 4.4 mmol/L (3.5-5.1) 02/19/24 20:52 Chloride 102 mmol/L (98-107) 02/19/24 20:52 Carbon Dioxide 22 mmol/L (22-29) 02/19/24 20:52 Anion Gap 17.4 (5-19) 02/19/24 20:52 BUN 17 mg/dL (6-20) 02/19/24 20:52 Creatinine 0.7 mg/dL (0.7-1.2) 02/19/24 20:52 GFR Calculation 118.0 mL/min (90-130) 02/19/24 20:52 Glucose 103 mg/dL (65-115) 02/19/24 20:52 Calculated Osmolality 286 mOsm/kg (285-295) 02/19/24 20:52 Lactic Acid 1.1 mmol/L (0.5-2.2) 02/19/24 20:52 Calcium 8.9 mg/dL (8.5-10.5) 02/19/24 20:52 Total Bilirubin 0.7 mg/dL (0.15-1.2) 02/19/24 20:52 AST 12 U/L (0-40) 02/19/24 20:52 ALT 11 U/L (0-41) 02/19/24 20:52 Alkaline Phosphatase 57 U/L (40-130) 02/19/24 20:52 Troponin T Baseline < 6 ng/L (0-15) 02/19/24 20:52 Troponin T 120 Minute 6.00 ng/L (0-15) 02/19/24 22:50 Delta Troponin T 0.01010 ABS# (0-10) 02/19/24 22:50 Total Protein 6.4 g/dL (6.6-8.7) L 02/19/24 20:52 Albumin 4.1 g/dL (3.5-5.2) 02/19/24 20:52 Globulin 2.3 g/dL (1.3-4.6) 02/19/24 20:52 Urine Color Yellow (Yellow) 02/19/24 21:39 Urine Appearance Clear (CLEAR) 02/19/24 21:39 Urine pH 5.5 (5-7) 02/19/24 21:39 Ur Specific [place] 1.017 (1.005-1.030) 02/19/24 21:39 Urine Protein Negative (Negative) 02/19/24 21:39 Urine Glucose (UA) Negative (Normal) 02/19/24 21:39 Urine Ketones Negative (Negative) 02/19/24 21:39 Urine Blood Trace (Negative) A 02/19/24 21:39 Urine Nitrate Negative (Negative) 02/19/24 21:39 Urine Bilirubin Negative (Negative) 02/19/24 21:39 Urine Urobilinogen 1.0 mg/dL (Negative) 02/19/24 21:39 Ur Leukocyte Esterase Negative (Negative) 02/19/24 21:39 Urine RBC 3-5 /hpf (0-2) 02/19/24 21:39 Urine WBC 0-5 /hpf (0-5) 02/19/24 21:39 Ur Squamous Epith Cells 0-5 /hpf (0-5) 02/19/24 21:39 Amorphous Sediment Not Reportable 02/19/24 21:39 Urine Bacteria None seen /hpf (NONE) 02/19/24 21:39 Hyaline Casts 0-4 /lpf H 02/19/24 21:39 All radiology interpretation(s) finalized by discharge Discharge Plan Discharge Patient Disposition: Home Clinical Impression: Non-cardiac chest pain Condition: Stable Prescriptions: No Action potassium 75 mg Tablet 75 mg PO DAILY magnesium 30 mg Tablet 30 mg PO DAILY hydrocodone-acetaminophen 5-325 mg tablet 1 tab PO Q6H PRN (Reason: pain) Qty: 28 0RF erythromycin 5 mg/gram (0.5 %) ointment 1 applic ophthalmic (eye) TID Qty: 3.5 0RF Discharge Orders: Discharge ED (Routine); Ordered 02/20/24 Ordered By: Genevieve Witt Referrals: Mare Tariq DO [Primary Care Provider] - Discharge Diet: Usual diet Discharge Activity: Increase activity as tolerated Patient Instructions: Noncardiac Chest Pain (ED), Opioid Safety, Pain Management Activity Restrictions/Additional Instructions: Thank you for choosing [facility] for your healthcare needs today. Please realize this is an emergency room and that we are providing you with a medical screening exam and this may not be complete and all inclusive of all the testing and or work up that you may need to determine your ailment or severity of your illness. You have been screened and evaluated and felt safe for discharge. Health conditions do change or evolve sometimes and as such it is important that you follow up with your Primary Doctor to be re checked, 3-5 days is a general good time frame for follow up. You are always welcome to return to the ED for re assessment if your symptoms are worsening or you have new concerns Coding Level of Care Code ED Digital Forensic Analyst for Jennifer Bradshaw
[2024-02-19 21:10] LABS: Basophils # 0.2 10^3/uL (0.0-0.1); Basophils % 1.1 %; Eosinophils # 3.7 10^3/uL (0.0-0.8); Eosinophils % 28.2 %; Hematocrit 44.3 % (37-53); Lymphocytes # 3.6 10^3/uL (0.8-4.8); Lymphocytes % 27.6 %; Mean Corpuscular HGB Conc 33.6 g/dL (30-55); Mean Corpuscular Hemoglobin 30.5 pg (27-33); Mean Corpuscular Volume 90.8 fl (82-101); Mean Platelet Volume 9.8 fL (7.4-10.4); Monocytes # 0.7 10^3/uL (0.2-0.9); Monocytes % 5.6 %; Neutrophils # 4.86 10^3/uL (1.8-7.7); Neutrophils % 37.2 %; Nucleated Red Blood Cells % 0 %; Platelet Count 217 10^3/cmm (157-399); Red Blood Count 4.88 10^6/uL (3.85-5.65); Red Cell Distribution Width 12.2 % (12.1-15.1); White Blood Count 13.06 10^3/uL (3.29-11.43)
[2024-02-19 21:16] LABS: Lactic Sepsis W/Reflex 1.1 mmol/L (0.5-2.2)
[2024-02-19 21:18] LABS: Troponin(5th) Baseline < 6 ng/L (0-15)
[2024-02-19 21:23] LABS: Alanine Aminotransferase 11 U/L (0-41); Albumin Level 4.1 g/dL (3.5-5.2); Alkaline Phosphatase 57 U/L (40-130); Blood Urea Nitrogen 17 mg/dL (6-20); Calcium 8.9 mg/dL (8.5-10.5); Carbon Dioxide 22 mmol/L (22-29); Chloride 102 mmol/L (98-107); Creatinine Clr Calc Pharmacy 166.6326; Globulin 2.3 g/dL (1.3-4.6); Glucose 103 mg/dL (65-115); Osmolality Calculated 286 mOsm/kg (285-295); Sodium 137 mmol/L (136-145); Total Bilirubin 0.7 mg/dL (0.15-1.2); Total Protein 6.4 g/dL (6.6-8.7)
[2024-02-19 21:25] LABS: Anion Gap 17.4 (5-19); Aspartate Amino Transferase 12 U/L (0-40); Potassium 4.4 mmol/L (3.5-5.1)
[2024-02-19 22:01] VITALS: BP 147/93; PULSE 78; RESP 16; O2SAT 93
[2024-02-19 22:04] LABS: Bilirubin Urine Negative (Negative); Blood Urine Trace (Negative); Glucose Urine UA Negative (Normal); Ketones Urine Negative (Negative); Leukocyte Esterase Urine Negative (Negative); Nitrate Urine Negative (Negative); Protein Urine Negative (Negative); Specific Gravity, Urine 1.017 (1.005-1.030); Urine Appearance Clear (CLEAR); Urine Color Yellow (Yellow); pH Urine 5.5 (5-7)
[2024-02-19 22:10] LABS: Bacteria Urine None Seen /hpf; Hyaline Casts Urine 0-4 /lpf; Squamous Epithelial Cell Urine 0-5 /hpf (0-5); WBC Urine 0-5 /hpf (0-5)
[2024-02-19 23:20] LABS: Troponin 5 2HR Delta 0.00001 ABS# (0-10)
[2024-02-20 00:21] VITALS: BP 110/55; PULSE 58; RESP 16; O2SAT 98
== END 2024-02-20 00:22 | disposition home or self-care (01) ==
PROVIDERS: Emergency Provider Emergency Medicine; PCP Family Medicine
DX: R07.89 Other chest pain (principal)
CPT/HCPCS: 36415; 71045; 80053; 81001; 83605; 84484; 85025; 93005; 99285

== ENCOUNTER → 2024-02-25 11:45 | Outpatient (BNVA) | payer OTHER, SELFPAY | PROVIDERS: PCP Nurse Practitioner Family; Visit Provider Nurse Practitioner Family | DX: R07.9 Chest pain, unspecified (principal) | CPT/HCPCS: 80061 ==

== ENCOUNTER 2024-03-28 09:40 | Outpatient (CLI) | payer OTHER, SELFPAY ==
--- NOTE | 2024-03-28 | ECG_ITS ---
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 Interpretive Statements Lung unchanged pre/post procedure; Intraprocedure shortess of breath; Symptoms resoled by discharge PROCEDURE: The baseline electrocardiogram showed normal sinus rhythm with normal ST-Ts right bundle branch block pattern. At the baseline, the patient's blood pressure was 131/96 mm Hg with a heart rate of 100. The patient exercised for 5 minutes and 31 seconds on a standard Perry protocol. Patient attained a maximum heart rate of 160 beats per minute(95% of the maximum predicted heart rate) with a blood pressure at the peak exercise of 177/105 mm Hg. The EKG at the peak exercise revealed no significant changes. Patient did not have any chest pain or any significant arrhythmis with the exercise Sestamibi was injected 1 minute prior to the peak exercise During the recovery phase, there were no new changes. Blood pressure at the end of the recovery phase was 144/99 mm Hg with a heart rate of 103 per minute. CONCLUSION: 1. No significant EKG changes with the [treadmill exercise 2. No exercise-induced chest pain or cardiac arrhythmia 3. Slightly impaired exercise tolerance, attained a maximum of 7.0 METs 4. Sestamibi/Sestamibi perfusion results pending; see separate report. Electronically Signed On 03-31-2024 07:26:08 PUMP INSTALLER by Marcelino Lorenzo M.D. [email or web address]
[2024-03-28 09:59] VITALS: BMI 30.3
--- NOTE | 2024-03-28 10:04 | NMCV_ITS ---
NM parvez perf SPECT r/s* [id number] Jean Patel Age: 53 Gender: M : 1970 Exam Date: 03/28/2024 10:37 Ordering Phys: Nicholas Martin MD ([email or web address]) Technologist: RAFAEL Gong Exam Location: [facility] Indications: cp STRESS TEST Please see separate stress test report in [facility] for full findings IMAGE PROTOCOL Rest/Stress 1 Exercise Day Radiopharmaceutical Dose (mCi) Administration Site Administered by Rest: Tc-99m 10.8 IV RAFAEL Gong Sestamibi Stress:Tc-99m 33 IV RAFAEL Ya Sestamiglenroy Rest: 28-Mar-2024 60 Discovery 630 Stress: 28-Mar-2024 15 Discovery 630 Radiopharmaceutical was injected at 90 % maximum heart rate. Images obtained in supine and prone position. SPECT RESULTS Technical Quality: Good Raw Data Analysis: Normal Image Corrections: No attenuation or motion correction applied Summed Stress Score: 0 Summed Rest Score: 0 Summed Difference Score: 0 PERFUSION FINDINGS Uniform myocardial tracer uptake with no significant perfusion abnormalities FUNCTIONAL RESULTS (calculated via Gated SPECT) Stress Image LV EF (%): 56 Stress EDV (mL):103 TID: 0.94 Stress ESV (mL):45 FUNCTIONAL FINDINGS: Segmental wall motion analysis revealing no gross wall motion abnormalities IMPRESSIONS 1. Uniform myocardial tracer uptake with no significant Perfusion abnormalities 2. Normal LV ejection fraction 56% 3. LV wall motion analysis revealing no gross wall motion abnormalities. 4. Need normal LV volume Low probability for coronary ischemia, based on the above findings Dr Marcelino Lorenzo MD FACC (Electronically Signed) Final Date: 28 March 2024 19:18 S
[2024-03-28 11:22] VITALS: BP 144/99; PULSE 102
--- NOTE | 2024-03-28 14:15 | USCV_ITS ---
Jean Patel Age: 53 Gender: M : 1970 Exam Date: 03/28/2024 14:18 Ordering Phys: Nicholas Martin MD ([email or web address]) Technologist: Josse Lobo [place] [facility] [place]ication: sob BP: 0 / 76 HR: 81 Rhythm: Sinus Technical Quality: Adequate MEASUREMENTS (Male / Female) Normal Values 2D ECHO LV Diastolic Diameter PLAX 5.0 cm 4.2 - 5.9 / 3.9 - 5.3 cm IVS Diastolic Thickness 1.1 cm 0.6 - 1.0 / 0.6 - 0.9 cm IVS Systolic Thickness 1.3 cm LVPW Diastolic Thickness 1.6 cm 0.6 - 1.0 / 0.6 - 0.9 cm LVPW Systolic Thickness 1.8 cm LVOT Diameter 2.1 cm LV Ejection Fraction 2D Teich 47.5 % LV Ejection Fraction MOD 4C 39.7 % LV Ejection Fraction MOD 2C 51.5 % LV Ejection Fraction 2C AL 51.0 % LA Diameter 3.6 cm RA Systolic Volume 4C AL 34.6 ml RA Systolic Volume 4C MOD 34.2 ml LA Sys Volume AL 42.8 cm cubed LA Sys Volume Index AL 19.5 cm cubed/m squared Aorta at Sinotubular Diameter 2.4 cm IVC Diameter 1.9 cm M-MODE LA Ao Ratio MM 1.0 AV Cusp Separation MM 2.1 cm DOPPLER AV Peak Velocity 151.0 cm/s LVOT Peak Velocity 84.0 cm/s AV Area Cont Eq vti 2.3 cm squared AV Area Cont Eq pk 2.0 cm squared MV Peak Velocity 69.0 cm/s MV Area PHT 3.8 cm squared Mitral E to A Ratio 0.9 TV Peak Velocity 264.5 cm/s TR Peak Velocity 286.0 cm/s TR Peak Gradient 32.7 mmHg TR Mean Velocity 211.0 cm/s TR Mean Gradient 20.2 mmHg TR Velocity Time Integral 50.0 cm PV Peak Velocity 110.0 cm/s RV Ejection Time 0.3 s FINDINGS Left Ventricle Normal left ventricular size, systolic function and wall thickness, abnormal septal motion consistent with conduction abnormality. . Left ventricular ejection fraction is estimated at 60 %. Grade I/IV diastolic dysfunction (abnormal relaxation filling pattern), normal to mildly elevated filling pressures. Right Ventricle The right ventricle is normal in size and function. Right Atrium The right atrium is normal in size. Left Atrium The left atrium is normal in size. Mitral Valve Structurally normal mitral valve without significant stenosis or prolapse. There is no mitral regurgitation. Aortic Valve Structurally normal aortic valve without significant sclerosis or stenosis. There is no aortic regurgitation. Tricuspid Valve Mild tricuspid valve regurgitation. Pulmonic Valve Structurally normal pulmonic valve without significant stenosis. There is no pulmonic regurgitation. Pericardium Normal pericardium without effusion. Aorta Normal ascending aorta dimension. IVC The inferior vena cava appears normal. CONCLUSIONS Normal left ventricular size, systolic function and wall thickness, abnormal septal motion consistent with conduction abnormality. . Left ventricular ejection fraction is estimated at 60 %. Grade I/IV diastolic dysfunction (abnormal relaxation filling pattern), normal to mildly elevated filling pressures. Mild tricuspid valve regurgitation. There is no pericardial effusion. Right atrial pressure is around 5 mm of mercury. Nicholas Martin MD (Electronically Signed) Final Date: 28 March 2024 17:00 S
== END 2024-03-28 09:41 | disposition home or self-care (01) ==
PROVIDERS: PCP Nurse Practitioner Family; Visit Provider Internal Medicine Cardiovascular Disease
DX: R06.02 Shortness of breath (principal); R93.1 Abnormal findings on diagnostic imaging of heart and coronary circulation; I07.1 Rheumatic tricuspid insufficiency
CPT/HCPCS: 36415; 78452; 93017; 93306; A9500

== ENCOUNTER → 2024-05-02 07:46 | Outpatient (BNVA) | payer SELFPAY | PROVIDERS: PCP Nurse Practitioner Family; Visit Provider Physician Assistant | DX: M17.0 Bilateral primary osteoarthritis of knee (principal) | CPT/HCPCS: 73560; 73565 ==

== ENCOUNTER 2024-07-20 10:09 | Emergency (ER) | payer OTHER, SELFPAY ==
[2024-07-20 10:22] VITALS: BP 123/86; PULSE 81; RESP 17; TEMP 36.7; O2SAT 97; BMI 29.8
--- NOTE | 2024-07-20 11:09 | W.ED.EXTPRO ---
HPI - Extremity Problem General: Chief complaint: Extremity Problem,Nontraumatic Stated complaint: L knee pain, swelling Time Seen by Provider: 07/20/24 11:09 History of Present Illness: 53-year-old male presents with left lower extremity is swelling and edema. 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 That about a week ago he noticed some pain in his posterior aspect of his left knee and has had some increasing swelling. He reports that now the whole left lower leg is swollen. That he continues to have some pain in the posterior knee and in the back of the calf. Reports that it will get a little bit better if he elevates it. No injury. Associated symptoms: Deny fever(s) Related Data Previous Rx's ?Medication ?Instructions ?Recorded nitroglycerin 0.4 mg sublingual 0.4 mg sublingual Q5M PRN chest 02/27/24 tablet pain #20 tabs apixaban 5 mg (74 tabs) tablets in See Rx Instructions PO .COMPLEX 07/20/24 a dose pack (EliNAVX DVT-PE Treat #74 ea 30D Start) Allergies Allergy/AdvReac Type Severity Reaction Status Date / Time No Known Allergies Allergy Verified 06/04/24 10:05 Review of Systems Const: Denies: fever(s) or chills Card: Reports: edema (Left lower leg) Resp: Denies: dyspnea GI: Denies: abdominal pain, nausea or vomiting Musc: Reports: extremity swelling Neuro: Denies: headache(s) or numbness in extremities PFSH ED PFSH: Medical History Cholelithiasis Colon polyp Family History Other Cancer Social History Smoking and tobacco/nicotine status: current every day tobacco/nicotine user (vape) cigarettes [ Other cigarette details: Working on quitting. ] Physical Exam Const: COMMON NORMALS: no acute distress, patient oriented x3 and alert Extremity: LEFT LOWER EXTREMITY: Yes lower leg OTHER: Tenderness posterior calf and popliteal fossa with lower extremity swelling/2+ edema down to foot from knee Neuro: COMMON NORMALS: patient oriented x3, moves all extremities and no focal motor deficits SENSORIUM/ORIENTATION: Yes alert Psych: COMMON NORMALS: mental status grossly normal, cooperative and speech normal SPEECH: Yes normal speech Course Vital Signs: Vital signs: Vital Signs Temperature 98.0 F 07/20/24 10:22 Pulse Rate 75 07/20/24 12:54 Respiratory Rate 17 07/20/24 10:22 Blood Pressure 120/86 07/20/24 12:54 Pulse Oximetry 98 07/20/24 12:54 Oxygen Delivery Me thod Room Air 07/20/24 11:26 MDM - Extremity (Nontraumatic) Medical Decision Making Patient's ultrasound was positive for DVT. Patient will be started on Eliquis for DVT starter pack. Patient already has established care with Dr. Llanos pressing machine operator. Recommend they call his office in the morning to make them aware of his diagnosis. Patient is a truck rental service attendant and due to the discomfort will provide him a couple days off and he can follow-up with Dr. Llanos on his return to work schedule with his DVT. Patient was stable and discharged home. Lab Data 07/20/24 11:20 07/20/24 11:20 Radiology Impressions Venous Duplex 07/20/24 11:15 IMPRESSION: Left lower extremity deep venous thrombosis, as described above. ADDENDUM: 07/20/24 1212 ADDENDUM: THIS REPORT CONTAINS FINDINGS THAT MAY BE CRITICAL TO PATIENT CARE. The findings were verbally communicated via telephone conference with DR. LARA at 12:10 PM CDT on 07/20/2024. The findings were acknowledged and understood. Laboratory Results WBC 9.06 10^3/uL (3.29-11.43) 07/20/24 11:20 RBC 4.52 10^6/uL (3.85-5.65) 07/20/24 11:20 Hgb 14.30 g/dL (11.27-16.99) 07/20/24 11:20 Hct 42.6 % (37-53) 07/20/24 11:20 MCV 94.2 fl (82-101) 07/20/24 11:20 MCH 31.6 pg (27-33) 07/20/24 11:20 MCHC 33.6 g/dL (30-55) 07/20/24 11:20 RDW 12.3 % (12.1-15.1) 07/20/24 11:20 Plt Count 213 10^3/cmm (157-399) 07/20/24 11:20 MPV 9.5 fL (7.4-10.4) 07/20/24 11:20 Neut % (Auto) 63.1 % 07/20/24 11:20 Lymph % (Auto) 20.6 % 07/20/24 11:20 [place] % (Auto) 6.5 % 07/20/24 11:20 Eos % (Auto) 8.9 % 07/20/24 11:20 Baso % (Auto) 0.8 % 07/20/24 11:20 Neut # (Auto) 5.71 10^3/uL (1.8-7.7) 07/20/24 11:20 Lymph # (Auto) 1.9 10^3/uL (0.8-4.8) 07/20/24 11:20 [place] # (Auto) 0.6 10^3/uL (0.2-0.9) 07/20/24 11:20 Eos # (Auto) 0.8 10^3/uL (0.0-0.8) 07/20/24 11:20 Baso # (Auto) 0.1 10^3/uL (0.0-0.1) 07/20/24 11:20 Nucleated RBC % (auto) 0 % 07/20/24 11:20 Nucleated RBCs # 0.0 /100WBC 07/20/24 11:20 Sodium 138 mmol/L (136-145) 07/20/24 11:20 Potassium 4.0 mmol/L (3.5-5.1) 07/20/24 11:20 Chloride 103 mmol/L (98-107) 07/20/24 11:20 Carbon Dioxide 25 mmol/L (22-29) 07/20/24 11:20 Anion Gap 14.0 (5-19) 07/20/24 11:20 BUN 11 mg/dL (6-20) 07/20/24 11:20 Creatinine 0.7 mg/dL (0.7-1.2) 07/20/24 11:20 GFR Calculation 118.0 mL/min (90-130) 07/20/24 11:20 Glucose 95 mg/dL (65-115) 07/20/24 11:20 Calculated Osmolality 285 mOsm/kg (285-295) 07/20/24 11:20 Calcium 9.1 mg/dL (8.5-10.5) 07/20/24 11:20 All radiology interpretation(s) finalized by discharge Discharge Plan Discharge Patient Disposition: Home Clinical Impression: Deep vein thrombosis of lower extremity Condition: Stable Prescriptions: New Eliquis DVT-PE Treat 30D Start 5 mg (74 tabs) tablets,dose pack See Rx Instructions .ROUTE .COMPLEX Qty: 74 0RF Rx Instructions: orally per package directions No Action nitroglycerin 0.4 mg tablet, sublingual 0.4 mg sublingual Q5M PRN (Reason: chest pain) Qty: 20 3RF Rx Instructions: do not exceed 3 doses per episode Discharge Orders: Discharge ED (Routine); Ordered 07/20/24 Ordered By: Prasanth Rodriguez Referrals: Gena Vincent FNP-C [Primary Care Provider, [facility]] Discharge Diet: Usual diet Discharge Activity: Increase activity as tolerated Patient Instructions: Apixaban (By mouth) (Eliquis), Deep Vein Thrombosis (ED), Deep Vein Thrombosis Prevention (ED), Opioid Safety, Pain Management Activity Restrictions/Additional Instructions: Please start the Eliquis that you are prescribed today. Please call Dr. Llanos's office tomorrow to make them aware of your diagnosis. Stand Alone Forms: Work/School Release Print Language: Maltese Coding Level of Care Code ED Java Systems Analyst for Jennifer Bradshaw
--- NOTE | 2024-07-20 11:15 | USR_ITS ---
PROCEDURE INFORMATION: Exam: US Duplex Left Lower Extremity Veins, Limited Exam date and time: 07/20/2024 11:26 AM Age: 53 years old Clinical indication: Edema, localized; Lower extremity, left; Additional info: Leg swelling, posterior calf, knee pain TECHNIQUE: Imaging protocol: Real-time duplex ultrasound of the left extremity with 2-D stearns scale, color Doppler flow and spectral waveform analysis including responses to compression and other maneuvers (when performed) with image documentation. Limited exam focused on the left lower extremity veins. COMPARISON: CR XR knees AP WB w BI lmt ORTH 05/02/2024 7:47 AM FINDINGS: Left deep veins: Hypoechoic, nonocclusive thrombus in the mid femoral vein, becoming occlusive in the distal femoral, popliteal and peroneal veins. The common femoral, proximal femoral, proximal profunda femoral and posterior tibial veins are patent without thrombus. Superficial veins: Greater saphenous vein at the saphenofemoral junction is patent without thrombus. Soft tissues: Mild subcutaneous edema. US/CV venous duplex [facility] [id number] IMPRESSION: Left lower extremity deep venous thrombosis, as described above.
[2024-07-20 11:26] VITALS: BP 127/81; PULSE 77; O2SAT 98
[2024-07-20 11:29] LABS: Basophils # 0.1 10^3/uL (0.0-0.1); Basophils % 0.8 %; Eosinophils # 0.8 10^3/uL (0.0-0.8); Eosinophils % 8.9 %; Hematocrit 42.6 % (37-53); Lymphocytes # 1.9 10^3/uL (0.8-4.8); Lymphocytes % 20.6 %; Mean Corpuscular HGB Conc 33.6 g/dL (30-55); Mean Corpuscular Hemoglobin 31.6 pg (27-33); Mean Corpuscular Volume 94.2 fl (82-101); Mean Platelet Volume 9.5 fL (7.4-10.4); Monocytes # 0.6 10^3/uL (0.2-0.9); Monocytes % 6.5 %; Neutrophils # 5.71 10^3/uL (1.8-7.7); Neutrophils % 63.1 %; Nucleated Red Blood Cells % 0 %; Platelet Count 213 10^3/cmm (157-399); Red Blood Count 4.52 10^6/uL (3.85-5.65); Red Cell Distribution Width 12.3 % (12.1-15.1); White Blood Count 9.06 10^3/uL (3.29-11.43)
[2024-07-20 11:44] LABS: Blood Urea Nitrogen 11 mg/dL (6-20); Calcium 9.1 mg/dL (8.5-10.5); Carbon Dioxide 25 mmol/L (22-29); Chloride 103 mmol/L (98-107); Creatinine Clr Calc Pharmacy 166.6326; Glucose 95 mg/dL (65-115); Osmolality Calculated 285 mOsm/kg (285-295); Sodium 138 mmol/L (136-145)
[2024-07-20 12:54] VITALS: BP 120/86; PULSE 75; O2SAT 98
== END 2024-07-20 12:54 | disposition home or self-care (01) ==
PROVIDERS: Emergency Provider Student in an Organized Health Care Education/Training Program; PCP Nurse Practitioner Family
DX: I82.412 Acute embolism and thrombosis of left femoral vein (principal); I82.432 Acute embolism and thrombosis of left popliteal vein; I82.452 Acute embolism and thrombosis of left peroneal vein; F17.290 Nicotine dependence, other tobacco product, uncomplicated
CPT/HCPCS: 36415; 80048; 85025; 93971; 99284

== ENCOUNTER 2024-07-31 07:49 | Oncology outpatient (recurring) (ONCR) | payer OTHER, SELFPAY ==
--- NOTE | 2024-07-31 09:09 | XR_ITS ---
WS: [id number] Chest 2 views, 07/31/2024 Clinical Data: LEFT REMORAL VEIN dvt Comparison: Portable chest, 02/19/2024 Findings: No nodules, masses or effusions are seen. The heart is normal. The pulmonary vascularity is not increased. No pneumonia or pneumothorax is seen. The diaphragms are flattened. The aortic arch and descending thoracic aorta show mild tortuosity. There are cholecystectomy clips in the right upper quadrant. XR/XR chest 2V* [id number] Impression: Atherosclerosis and hyperinflation.
[2024-07-31 09:21] LABS: Basophils # 0.1 10^3/uL (0.0-0.1); Basophils % 0.8 %; Eosinophils # 0.9 10^3/uL (0.0-0.8); Eosinophils % 9.9 %; Lymphocytes % 23.1 %; Mean Corpuscular Hemoglobin 31.4 pg (27-33); Mean Corpuscular Volume 95.2 fl (82-101); Mean Platelet Volume 9.8 fL (7.4-10.4); Monocytes # 0.5 10^3/uL (0.2-0.9); Monocytes % 5.8 %; Neutrophils # 5.16 10^3/uL (1.8-7.7); Neutrophils % 59.9 %; Nucleated Red Blood Cells % 0 %; Platelet Count 229 10^3/cmm (157-399); Red Cell Distribution Width 12.6 % (12.1-15.1); White Blood Count 8.61 10^3/uL (3.29-11.43)
[2024-07-31 09:39] LABS: D Dimer 1.95 ug/mLFEU (0-0.59)
[2024-07-31 09:41] LABS: Alanine Aminotransferase 11 U/L (0-41); Albumin Level 3.8 g/dL (3.5-5.2); Alkaline Phosphatase 55 U/L (40-130); Anion Gap 15.6 (5-19); Aspartate Amino Transferase 13 U/L (0-40); Blood Urea Nitrogen 11 mg/dL (6-20); Calcium 8.8 mg/dL (8.5-10.5); Carbon Dioxide 22 mmol/L (22-29); Chloride 110 mmol/L (98-107); Globulin 2.6 g/dL (1.3-4.6); Glucose 90 mg/dL (65-115); Lactate Dehydrogenase 299 U/L (135-225); Osmolality Calculated 295 mOsm/kg (285-295); Potassium 4.6 mmol/L (3.5-5.1); Sodium 143 mmol/L (136-145); Total Bilirubin 0.5 mg/dL (0.15-1.2); Total Protein 6.4 g/dL (6.6-8.7)
[2024-08-01 07:11] LABS: PROTEIN, TOTAL 6.2 g/dL (6.1-8.1)
[2024-08-01 15:16] LABS: Anti-Nuclear Antibody Screen NEGATIVE (NEGATIVE)
[2024-08-01 19:59] LABS: PTT-LA-Screen 37 sec (< OR = 40)
[2024-08-02 01:49] LABS: CARDIOLIPIN AB (IGA) <2.0 APL-U/mL; CARDIOLIPIN AB (IGG) <2.0 GPL-U/mL; CARDIOLIPIN AB (IGM) <2.0 MPL-U/mL
[2024-08-02 11:19] LABS: ALBUMIN 3.8 g/dL (3.8-4.8); ALPHA 1 GLOBULIN 0.3 g/dL (0.2-0.3); ALPHA 2 GLOBULIN 0.5 g/dL (0.5-0.9); BETA 1 GLOBULIN 0.4 g/dL (0.4-0.6); BETA 2 GLOBULIN 0.4 g/dL (0.2-0.5); GAMMA GLOBULIN 0.7 g/dL (0.8-1.7)
[2024-08-03 20:51] LABS: Immunofixation Serum Normal pattern.
[2024-08-04 22:04] LABS: Antithrombin III Activity 113 % normal (80-135)
[2024-08-06 22:34] LABS: Beta 2 Glycoprotein IGA <2.0 U/mL (<20.0); Beta 2 Glycoprotein IGG <2.0 U/mL (<20.0); Beta 2 Glycoprotein IGM 2.2 U/mL (<20.0)
== END 2024-08-11 23:59 | disposition home or self-care (01) ==
PROVIDERS: PCP Nurse Practitioner Family; Visit Provider Internal Medicine
DX: I82.412 Acute embolism and thrombosis of left femoral vein (principal)
CPT/HCPCS: 36415; 71046; 80053; 83615; 84155; 84165; 85025; 85300; 85378; 85613; 85730; 86038; 86146; 86147; 86334

== ENCOUNTER → 2024-08-06 09:28 | Outpatient (BNVA) | payer OTHER, SELFPAY | PROVIDERS: PCP Nurse Practitioner Family; Visit Provider Student in an Organized Health Care Education/Training Program | DX: M75.41 Impingement syndrome of right shoulder (principal); M75.101 Unspecified rotator cuff tear or rupture of right shoulder, not specified as traumatic | CPT/HCPCS: 73030 ==

== ENCOUNTER → 2024-09-08 09:46 | Outpatient (BNVA) | payer OTHER, SELFPAY | PROVIDERS: PCP Nurse Practitioner Family; Visit Provider Internal Medicine Cardiovascular Disease | DX: R07.9 Chest pain, unspecified (principal) | CPT/HCPCS: 93005 ==

== ENCOUNTER 2024-09-08 11:30 | Oncology outpatient (recurring) (ONCR) | payer OTHER, SELFPAY ==
--- NOTE | 2024-08-19 07:15 | US_ITS ---
WS: [id number] Exam: US abdomen complete* [id number] Date/Time of Exam: 08/19/2024 8:20 AM Reason For Exam: DVT of frmotal vein of left lower extremity The liver and spleen were unremarkable. The gallbladder surgically absent. The pancreas was partially obscured by bowel gas. The common bile duct is not dilated and measures 5 mm in greatest diameter. The IVC was patent. The abdominal aorta is normal in caliber. The kidneys are of normal size, shape and location. No solid or cystic renal mass. No renal obstruction. The RIGHT kidney measures 10.7 x 4.8 x 5.5 cm. The LEFT kidney 11.1 x 5.4 x 5.2 cm. The renal cortex is well-preserved bilaterally. No abdominal mass or abnormal free fluid collection. US/US abdomen complete* [id number] IMPRESSION: 1. Unremarkable abdominal sonogram. The pancreas was partially obscured by gordo l gas. 2. Status post cholecystectomy.
--- NOTE | 2024-08-20 13:00 | MRR_ITS ---
PROCEDURE INFORMATION: Exam: MR Right Upper Extremity Joint Without Contrast; Shoulder Exam date and time: 08/20/2024 12:23 PM Age: 53 years old Clinical indication: Injury or trauma; Fall; Work related; Blunt trauma (contusions or hematomas); Right; Injury date: 01/2025; Injury details: PT states he fell and hit his shoulder on the fender of a trailer; Additional info: Right shoulder rotator cuff tear TECHNIQUE: Imaging protocol: Magnetic resonance imaging of the right upper extremity without contrast. Exam focused on the shoulder. COMPARISON: CR XR shoulder RT min 2V* [id number] 08/06/2024 9:34 AM FINDINGS: Bones/joints: Bones and articular structures: Full Coracoacromial ligament is without hypertrophy or enthesophyte formation. AC joint alignment is normal. There is mild AC joint hypertrophy and periarticular marrow edema as well as capsular edema. Slight impingement on the supraspinatus tendon is evident. There is posterior angulation of the coracoid process. The short head biceps tendon and coracobrachialis tendon contact the anterior margin of the humeral head due to subscapularis tendon disruption (see below). There is superior subluxation of the humeral head as well as slight anterior subluxation. Glenohumeral articular cartilage appears to be intact. No fracture or bone marrow replacement is evident.. Intra-articular loose bodies: Intra-articular debris is identified. No calcified osteochondromas are visible. Glenoid labrum: A type 1 superior labral insertion is present. No labral tears are present. Long head biceps tendon shows disruption and retraction inferior to the bicipital groove. Bursae: Subdeltoid bursa: There is free communication of fluid between the joint cavity and the subdeltoid bursa. Supraspinatus tendon: Full-thickness tear with retraction. No significant distal residual tendon is identified. Infraspinatus tendon: Full-thickness tear of the majority of the infraspinatus tendon is evident with minimal residual inferior fibers remaining intact. Subscapularis tendon: Full-thickness tear and retraction of the subscapularis tendon is evident. Teres minor tendon: Unremarkable. Tendon of biceps brachii: Tendon of the biceps brachii: Unremarkable. Glenohumeral ligaments: Unremarkable. Soft tissues: Capsular volume , thickness, and signal intensity are normal.. No muscle strain or atrophy is present. MR/MR shoulder RT wo con* [id number] IMPRESSION: 1. Full-thickness tears of the supraspinatus and subscapularis tendons with tendon retraction. 2. Full-thickness nearly complete tear of the infraspinatus tendon with a few residual inferior fibers remaining intact. 3. Torn biceps tendon with retraction inferior to the bicipital groove. 4. Mild subacromial impingement due to AC joint hypertrophy. 5. Probable prior subcoracoid impingement. 6. No visible labral tear.
[2024-09-08 11:31] LABS: Hematocrit 43.4 % (37-53); Hemoglobin 13.90 g/dL (11.27-16.99); Mean Corpuscular HGB Conc 32.0 g/dL (30-55); Mean Corpuscular Hemoglobin 30.8 pg (27-33); Mean Corpuscular Volume 96.0 fl (82-101); Nucleated Red Blood Cells % 0 %; Platelet Count 170 10^3/cmm (157-399); Red Blood Count 4.52 10^6/uL (3.85-5.65); White Blood Count 6.75 10^3/uL (3.29-11.43)
[2024-09-08 11:56] LABS: Anion Gap 16.1 (5-19); Blood Urea Nitrogen 9 mg/dL (6-20); Calcium 8.9 mg/dL (8.5-10.5); Carbon Dioxide 25 mmol/L (22-29); Chloride 103 mmol/L (98-107); Creatinine Clr Calc Pharmacy 165.0666; Glucose 94 mg/dL (65-115); NT Pro B Type Natriuretic Pept 194 pg/mL (0-125); Osmolality Calculated 288 mOsm/kg (285-295); Potassium 4.1 mmol/L (3.5-5.1); Sodium 140 mmol/L (136-145)
== END 2024-09-11 23:59 | disposition home or self-care (01) ==
PROVIDERS: Internal Medicine Cardiovascular Disease; PCP Nurse Practitioner Family; Visit Provider Internal Medicine
DX: Z53.9 Procedure and treatment not carried out, unspecified reason; R94.31 Abnormal electrocardiogram [ECG] [EKG]; R60.9 Edema, unspecified
CPT/HCPCS: 36415; 73221; 76700; 80048; 83880; 85025

== ENCOUNTER 2024-10-09 07:30 | Oncology outpatient (recurring) (ONCR) | payer MEDICAID, SELFPAY ==
--- NOTE | 2024-09-16 08:00 | MR_ITS ---
WS: [id number] MRI HEAD WITH CONTRAST TECHNIQUE: Sagittal T1, T2 axial, T2 axial FLAIR, axial susceptibility weighted imaging, axial diffusion weighted images, and coronal T2 images were obtained. Pre and post-T1 axial and post T1 coronal images. ADC and FSPGR images. CLINICAL INFORMATION: slurred speech COMPARISON: None. FINDINGS: No evidence of restricted diffusion to suggest acute ischemia. Mild small vessel changes. No significant parenchymal volume loss. Tiny chronic lacunar infarct LEFT midbrain. Normal vascular flow voids at the skull base. No extra-axial fluid collections. Paranasal sinuses and mastoid air cells are well aerated. 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 Normal optic chiasm and pituitary infundibulum. No significant hippocampal atrophy. No abnormal gadolinium enhancement. Normal dural venous sinuses. No other acute findings. MR/MR head wo/w con [id number] IMPRESSION: 1. No evidence of restricted diffusion to suggest acute ischemia. 2. Mild small vessel changes. No significant parenchymal volume loss. 3. No abnormal gadolinium enhancement. 4. Tiny chronic recurrent infarct LEFT midbrain. 5. No hemosiderin on the susceptibly weighted images.
[2024-09-16] MEDS: gadobenate dimeglumine 20 mL vial IV (09:01)
--- NOTE | 2024-10-09 07:30 | CT_ITS ---
WS: [id number] LDCT LUNG CANCER SCREENING HISTORY: Z87.891 - Personal history of nicotine dependence TECHNIQUE: Axial imaging performed from the apices to 1 cm below the costophrenic angles. Coronal and sagittal reformats are submitted with axial MIP series. All CT scans at [facility] use at least one of these dose optimization techniques: automated exposure control; mA and/or kV adjustment per patient size (includes targeted exams where dose is matched to clinical indication); or iterative reconstruction. DLP: 77.50 mGy.cm DIvol: Mean CTDIvol: 1.50 (mGy) COMPARISON: None available. Diagnostic quality: Satisfactory Lungs: Moderate pulmonary hyperinflation. Benign granuloma RIGHT upper lobe, posterior. There is a small adjacent 3 mm nodule, image 91 series 4. No pneumonia. No endobronchial lesions. Heart: Normal size heart with no pericardial effusion.. Other findings: Minimal atherosclerosis aorta. No pathologically enlarged lymph nodes. Mild thickening of the LEFT adrenal gland. Prior cholecystectomy. CT/CT lung screening [id number] IMPRESSION: LUNG-RADS: 2-Benign Appearance or Behavior FOLLOW UP: 12 Month: Continue annual screening with LDCT OTHER FINDINGS (S MODIFIER): None.
== END 2024-10-12 23:59 | disposition home or self-care (01) ==
LOC: RAD 10-10 00:01 → ONCMED 10-10 08:01
PROVIDERS: PCP Nurse Practitioner Family; Visit Provider Internal Medicine
DX: Z53.9 Procedure and treatment not carried out, unspecified reason (principal); M75.41 Impingement syndrome of right shoulder; M75.101 Unspecified rotator cuff tear or rupture of right shoulder, not specified as traumatic; S46.211A Strain of muscle, fascia and tendon of other parts of biceps, right arm, initial encounter; X58.XXXA Exposure to other specified factors, initial encounter; R93.7 Abnormal findings on diagnostic imaging of other parts of musculoskeletal system; S43.001A Unspecified subluxation of right shoulder joint, initial encounter; I82.412 Acute embolism and thrombosis of left femoral vein; Z90.49 Acquired absence of other specified parts of digestive tract; M25.511 Pain in right shoulder; R47.81 Slurred speech
CPT/HCPCS: 70553; 71271; A9577

== ENCOUNTER 2024-10-14 08:42 | Outpatient (CLI) | payer MEDICAID, SELFPAY ==
--- NOTE | 2024-10-14 08:49 | USCV_ITS ---
Jean Patel Age: 53 Gender: M : 1970 Exam Date: 10/14/2024 09:00 Ordering Phys: Samira Fairbanks Technologist: JEN Exam Location: [facility] [place] Indication: LLE Dvt in July. HISTORY: History of deep venous thrombosis. PROCEDURES: Comparison:. 07/20/24 Venous duplex imaging was performed in only the left lower extremity. The following venous structures were evaluated: common femoral vein, profunda vein, proximal portion of the greater saphenous vein, superficial femoral vein, and the popliteal vein. In addition, the posterior tibial and peroneal trunk were evaluated. Serial compression, augmentation maneuvers, and spectral Doppler flow evaluation were performed. FINDINGS: Improving DVT burden since the prior exam. Residual DVT is non occlusive in the popliteal vein. Remaining veins are free of DVT. CONCLUSIONS Residual non occlusive DVT left popliteal vein. Dr. Romi Mcintosh DO (Electronically Signed) Final Date: 14 October 2024 09:26 S
== END 2024-10-14 08:43 | disposition home or self-care (01) ==
LOC: RAD 08:43
PROVIDERS: PCP Registered Nurse; Visit Provider Nurse Practitioner Family
DX: I82.432 Acute embolism and thrombosis of left popliteal vein (principal)
CPT/HCPCS: 93971

== ENCOUNTER 2024-10-28 13:11 | Emergency (ER) | payer MEDICAID, SELFPAY ==
[2024-10-28 13:29] VITALS: BP 104/66; PULSE 67; RESP 17; TEMP 36.7; O2SAT 99; BMI 27.7
--- OUTSIDE RECORDS SUMMARY | 2024-10-28 13:58 | XMS_ITS | Patient Health Record ---
Author Organization [facility] Address [address] [place] [address] Care Team Providers Care Bitumen Plant Operator Name Role Phone Kem Clark Primary Care Provider Reason For Referral No Information Medications Medication SIG (Take, Route, Frequency, Duration) Notes Start Date End Date Status HYDROcodone-Acetaminophen 5-325 MG 1 tablet as needed Orally every 6 hrs; Duration: 14 days 07/10/2013 Active Plan Of Treatment No Information Insurance Providers Payer Name Payer Address Payer Phone Subscriber Number Group Number Insured Name Patient Relationship to Insured Coverage Start Date Coverage End Date [facility] [employer] [address] [place], [place] [id number] KACI GOMEZ Self - patient is the insured Medical (General) History Surgical History Surgery Date(Month/Year) ankle surgery 12/2012 Hospitalization History Reason Date(Month/Year) ankle surgery 06/02/2014
--- OUTSIDE RECORDS SUMMARY | 2024-10-28 13:58 | XMS_ITS | Patient Health Record ---
Author Organization [facility] Address [address] [facility] [address] [place] [address] Care Team Providers Care Investment Sales Assistant Name Role Phone LUIS ENRIQUE MCHUGH Primary Care Provider Reason For Referral No Information Medications Medication SIG (Take, Route, Frequency, Duration) Notes Start Date End Date Status Meloxicam 15 MG 1 (one) Oral AM 05/19/2015 Active traMADol HCl 50 MG 1 (one) Oral Q 6-8 h rs as needed for pain Must last 30 days called in 05/19/2015 Active Problems Problem Type SNOMED Code ICD Code Onset Dates Problem Status W/U Status Risk Notes Problem Chronic pain of right knee (M25.561) Active confirmed Comment:Star t Mobic daily and tramadol prn only. Gave orders for x-ray of right knee. Will consider MRI or SYnvisc if OA is present, Plan Of Treatment No Information Medical (General) History Surgical History Surgery Date(Month/Year) ankle, ProblemStatus: Active, 2012-02-13
--- NOTE | 2024-10-28 15:17 | XR_ITS ---
WS: [id number] XR shoulder RT min 2V* [id number] REASON FOR EXAM: RIGHT SHOULDER PAIN FINDINGS: No fracture or dislocation. Mild osteoarthritis of the acromioclavicular joint and glenohumeral joint. No radiopaque soft tissue foreign body. XR/XR shoulder RT min 2V* [id number] IMPRESSION: No acute abnormality.
--- NOTE | 2024-10-28 15:18 | XRR_ITS ---
PROCEDURE INFORMATION: Exam: XR Right Knee Exam date and time: 10/28/2024 3:21 PM Age: 53 years old Clinical indication: Pain; Knee; Right; Additional info: Right knee pain TECHNIQUE: Imaging protocol: Radiologic exam of the right knee. Views: 3 views. COMPARISON: MR knee RT wo con* [id number] 11/25/2021 4:19 PM FINDINGS: Bones/joints: A slight degree of lateral tibial subluxation relative to femur is similar to prior MRI. No acute fracture. Medial compartment reveals moderate joint space loss, subchondral sclerosis and moderate marginal osteophytes. The lateral compartment demonstrates a moderate tibial plateau osteophyte. The patellofemoral compartment reveals severe joint space loss, remodeling, subchondral sclerosis and moderate marginal osteophytes. 17 mm well corticated ossicle lies superior to the patella. Several large, well corticated ossicles measuring up to 2.4 cm are again noted within the suprapatellar bursa laterally. Soft tissues: Normal. XR/XR knee RT 3V* [id number] IMPRESSION: 1. Severe degenerative changes in the medial compartment and patellofemoral compartment. 2. Several large osteochondromas are again noted within the suprapatellar bursa.
[2024-10-28] MEDS: HYDROcodone-acetaminophen 7.5-325 mg Tablet 1 TAB PO (15:44)
--- NOTE | 2024-10-28 15:53 | W.ED.FALL ---
Documented by User: MASTER Mathews 10/28/24 16:18 HPI - Fall General: Chief Complaint: Fall Stated Complaint: fell and hurt right shoulder Time Seen by Provider: 10/28/24 15:19 Source: patient Mode of arrival: ambulatory Limitations: no limitations History of Present Illness: Patient is a 53-year-old male who presents to the emergency department after a fall earlier this morning. States he has been falling frequently, and currently is being seen by neurosurgery for these falls. With today's fall he tripped and injured his right knee and right shoulder. Has full range of motion still, reporting diffuse pain that he cannot localize in both joints. He also states he sees orthopedics for both his right shoulder and knee and is set to have his right shoulder replaced soon. Ambulatory without difficulty, just dating that he feels sore. Did not hit his head or lose consciousness, no significant downtime. MD complaint: fall Onset (ago): hour(s) Fall from: standing Place fall occurred: home Loss of consciousness: None Prolonged down time: no Symptoms prior to fall: none Context: tripped/slipped Location of injury - extremities: Right: shoulder and knee Associated symptoms-after fall: Denies abdominal pain, chest pain, headache(s) or neck pain Related Data Previous Rx's ?Medication ?Instructions ?Recorded nitroglycerin 0.4 mg sublingual 0.4 mg sublingual Q5M PRN chest 02/27/24 tablet pain #20 tabs apixaban 5 mg tablet (Eliquis) 5 mg PO BID #60 tabs 08/19/24 aspirin 81 mg tablet,delayed 81 mg PO DAILY #90 tabs 09/16/24 release (Adult Aspirin Regimen) atorvastatin 20 mg tablet (Lipitor) 20 mg PO DAILY #90 tabs 10/09/24 Allergies Allergy/AdvReac Type Severity Reaction Status Date / Time No Known Allergies Allergy Verified 10/14/24 10:45 Review of Systems General: Reports: 10 or more systems reviewed and unremarkable except in HPI and below Const: Denies: fever(s) or chills Card: Denies: chest pain Resp: Denies: dyspnea or productive cough GI: Denies: abdominal pain, nausea, vomiting or diarrhea : Denies: flank pain Musc: Reports: joint pain (Right shoulder/right knee); Denies: neck pain, back pain, extremity pain, extremity swelling, joint swelling, joint redness, joint warmth, limited range of motion or muscle weakness Skin/Breast: Denies: rash Neuro: Denies: headache(s), numbness in extremities or weakness in extremities PFS ED PFSH: Medical History Cholelithiasis Colon polyp Family History Other Cancer Social History Smoking and tobacco/nicotine status: former use of tobacco/nicotine Second hand smoke exposure: No Alcohol intake: never Substance/Drug Use: never Lives independently: Yes Household members: family Housing: House Marital status: Physical Exam Const: COMMON NORMALS: no acute distress, patient oriented x3, no limitations, healthy appearing, alert and well nourished HENMT: COMMON NORMALS: normocephalic and atraumatic HEAD & SCALP: normocephalic and atraumatic Neck/C-Spine: COMMON NORMALS: full ROM, supple and no meningeal signs Resp: COMMON NORMALS: normal respiratory effort, No use of accessory muscles and clear to auscultation bilaterally AUSCULTATION: clear to auscultation bilaterally Cardio: COMMON NORMALS: regular rate and regular rhythm RATE: regular rate RHYTHM: regular rhythm Extremity: COMMON NORMALS: full ROM, capillary refill normal, no joint enlargement and no clubbing, cyanosis or edema NARRATIVE EXTREMITY EXAM: No significant reproducible tenderness to palpation to either the right shoulder or right knee. No obvious deformity. No erythema or swelling to these joints. Full range of motion. Neuro: COMMON NORMALS: patient oriented x3, moves all extremities, no focal motor deficits and no sensory deficits noted SENSORIUM/ORIENTATION: Yes alert MENINGEAL SIGNS: Yes no meningeal signs Skin: COMMON NORMALS: no rashes or lesions noted GENERAL SKIN EXAM: no rashes or lesions noted Course Vital Signs: Vital signs: Vital Signs Temperature 98.1 F 10/28/24 13:29 Pulse Rate 82 10/28/24 16:28 Respiratory Rate 17 10/28/24 13:29 Blood Pressure 115/78 10/28/24 16:28 Pulse Oximetry 98 10/28/24 16:28 Oxygen Delivery Me thod Room Air 10/28/24 13:29 MDM - Fall Medical Decision Making Patient presenting after a fall, history of similar and is currently undergoing workup with neurosurgery for his frequent falls and history of TIA. This was an accidental trip and fall, no other concerns, patient is just here to rule out any injury with his right knee and right shoulder. Overall the exam was reassuring, has no significant reproducible tenderness to palpation, he had full range of motion, and there was no obvious deformity noted. He is also currently being evaluated by orthopedics with both his knees and his right shoulder, and states he is set to have shoulder replacement soon. The x-rays do not demonstrate any acute abnormality. He notes significant relief of pain after 1 Friedens pill here, and will be allowed discharge home as there is no further need for workup or imaging in the ED. Patient agrees with this plan, discharge at this time. Lab Data Radiology Impressions Shoulder X-Ray 10/28/24 15:17 IMPRESSION: No acute abnormality. Knee X-Ray 10/28/24 15:18 IMPRESSION: 1. Severe degenerative changes in the medial compartment and patellofemoral compartment. 2. Several large osteochondromas are again noted within the suprapatellar bursa. All radiology interpretation(s) finalized by discharge Discharge Plan Discharge Patient Disposition: Home Clinical Impression: Fall Qualifiers: Encounter type: initial encounter Qualified Code(s): W19.XXXA - Unspecified fall, initial encounter Right shoulder strain Qualifiers: Encounter type: initial encounter Qualified Code(s): S46.911A - Strain of unspecified muscle, fascia and tendon at shoulder and upper arm level, right arm, initial encounter Contusion of knee, right Qualifiers: Encounter type: initial encounter Qualified Code(s): S80.01XA - Contusion of right knee, initial encounter Condition: Stable Prescriptions: No Action nitroglycerin 0.4 mg tablet, sublingual 0.4 mg sublingual Q5M PRN (Reason: chest pain) Qty: 20 3RF Rx Instructions: do not exceed 3 doses per episode aspirin [Adult Aspirin Regimen] 81 mg tablet,delayed release (DR/EC) 81 mg PO DAILY Qty: 90 3RF Eliquis 5 mg tablet 5 mg PO BID Qty: 60 3RF atorvastatin [Lipitor] 20 mg tablet 20 mg PO DAILY Qty: 90 3RF Discharge Orders: Discharge ED (Routine); Ordered 10/28/24 Ordered By: Ronald Luna Referrals: Laurie Darby FNP [Primary Care Provider, Family Practice] Patient Instructions: Patient Portal & Jackie Instructions Activity Restrictions/Additional Instructions: Take the Friedens for breakthrough pain. May take Tylenol otherwise. Rest, ice, compression, and elevation. Follow-up with orthopedics as already scheduled. Return with any new or worsening. Print Language: Montserratian Coding Level of Care Code ED Receiving Dock Checker for Chg Fwd Documented by User: Ye Samson, 10/28/24 17:16 HPI - Fall General: Chief Complaint: Fall Stated Complaint: fell and hurt right shoulder Time Seen by Provider: 10/28/24 15:19 Related Data Previous Rx's ?Medication ?Instructions ?Recorded nitroglycerin 0.4 mg sublingual 0.4 mg sublingual Q5M PRN chest 02/27/24 tablet pain #20 tabs apixaban 5 mg tablet (Eliquis) 5 mg PO BID #60 tabs 08/19/24 aspirin 81 mg tablet,delayed 81 mg PO DAILY #90 tabs 09/16/24 release (Adult Aspirin Regimen) atorvastatin 20 mg tablet (Lipitor) 20 mg PO DAILY #90 tabs 10/09/24 Allergies Allergy/AdvReac Type Severity Reaction Status Date / Time No Known Allergies Allergy Verified 10/14/24 10:45 [facility] ED PFSH: Medical History Cholelithiasis Colon polyp Family History Other Cancer Social History Smoking and tobacco/nicotine status: former use of tobacco/nicotine Second hand smoke exposure: No Alcohol intake: never Substance/Drug Use: never Lives independently: Yes Household members: family Housing: House Marital status: Course Vital Signs: Vital signs: Vital Signs Temperature 98.1 F 10/28/24 13:29 Pulse Rate 82 10/28/24 16:28 Respiratory Rate 17 10/28/24 13:29 Blood Pressure 115/78 10/28/24 16:28 Pulse Oximetry 98 10/28/24 16:28 Oxygen Delivery Me thod Room Air 10/28/24 13:29 MDM - Fall Medical Decision Making Patient presenting after a fall, history of similar and is currently undergoing workup with neurosurgery for his frequent falls and history of TIA. This was an accidental trip and fall, no other concerns, patient is just here to rule out any injury with his right knee and right shoulder. Overall the exam was reassuring, has no significant reproducible tenderness to palpation, he had full range of motion, and there was no obvious deformity noted. He is also currently being evaluated by orthopedics with both his knees and his right shoulder, and states he is set to have shoulder replacement soon. The x-rays do not demonstrate any acute abnormality. He notes significant relief of pain after 1 Friedens pill here, and will be allowed discharge home as there is no further need for workup or imaging in the ED. Patient agrees with this plan, discharge at this time. Chart reviewed and patient discussed with midlevel. Agree with assessment and plan. Lab Data Radiology Impressions Shoulder X-Ray 10/28/24 15:17 IMPRESSION: No acute abnormality. Knee X-Ray 10/28/24 15:18 IMPRESSION: 1. Severe degenerative changes in the medial compartment and patellofemoral compartment. 2. Several large osteochondromas are again noted within the suprapatellar bursa. Discharge Plan Discharge Patient Disposition: Home Clinical Impression: Fall Qualifiers: Encounter type: initial encounter Qualified Code(s): W19.XXXA - Unspecified fall, initial encounter Right shoulder strain Qualifiers: Encounter type: initial encounter Qualified Code(s): S46.911A - Strain of unspecified muscle, fascia and tendon at shoulder and upper arm level, right arm, initial encounter Contusion of knee, right Qualifiers: Encounter type: initial encounter Qualified Code(s): S80.01XA - Contusion of right knee, initial encounter Condition: Stable Prescriptions: No Action nitroglycerin 0.4 mg tablet, sublingual 0.4 mg sublingual Q5M PRN (Reason: chest pain) Qty: 20 3RF Rx Instructions: do not exceed 3 doses per episode aspirin [Adult Aspirin Regimen] 81 mg tablet,delayed release (DR/EC) 81 mg PO DAILY Qty: 90 3RF Eliquis 5 mg tablet 5 mg PO BID Qty: 60 3RF atorvastatin [Lipitor] 20 mg tablet 20 mg PO DAILY Qty: 90 3RF Discharge Orders: Discharge ED (Routine); Ordered 10/28/24 Ordered By: Ronald Luna Referrals: Laurie Darby FNP [Primary Care Provider, Family Practice] Patient Instructions: Patient Portal & Jackie Instructions Activity Restrictions/Additional Instructions: Take the Friedens for breakthrough pain. May take Tylenol otherwise. Rest, ice, compression, and elevation. Follow-up with orthopedics as already scheduled. Return with any new or worsening. Print Language: Montserratian Coding Level of Care Code ED Receiving Dock Checker for Jennifer Bradshaw
[2024-10-28] MEDS: HYDROcodone-acetaminophen 7.5-325 mg Tablet 2 TAB PO (16:24)
[2024-10-28 16:28] VITALS: BP 115/78; PULSE 82; O2SAT 98
== END 2024-10-28 16:30 | disposition home or self-care (01) ==
PROVIDERS: Emergency Provider Physician Assistant; PCP Registered Nurse
DX: S80.01XA Contusion of right knee, initial encounter (principal); S46.911A Strain of unspecified muscle, fascia and tendon at shoulder and upper arm level, right arm, initial encounter; Z79.82 Long term (current) use of aspirin; Z79.01 Long term (current) use of anticoagulants; Z87.891 Personal history of nicotine dependence; W01.0XXA Fall on same level from slipping, tripping and stumbling without subsequent striking against object, initial encounter
CPT/HCPCS: 73030; 73562; 99284; J9999

== ENCOUNTER 2024-10-30 13:29 | Oncology outpatient (recurring) (ONCR) | payer MEDICAID, SELFPAY ==
[2024-10-30 13:54] LABS: Hematocrit 39.7 % (37-53); Hemoglobin 13.10 g/dL (11.27-16.99); Mean Corpuscular HGB Conc 33.0 g/dL (30-55); Mean Corpuscular Hemoglobin 30.3 pg (27-33); Mean Corpuscular Volume 91.7 fl (82-101); Nucleated Red Blood Cells % 0 %; Platelet Count 177 10^3/cmm (157-399); Red Blood Count 4.33 10^6/uL (3.85-5.65); White Blood Count 4.42 10^3/uL (3.29-11.43)
[2024-10-30 14:10] LABS: Alanine Aminotransferase 14 U/L (0-41); Albumin Level 3.9 g/dL (3.5-5.2); Alkaline Phosphatase 77 U/L (40-130); Anion Gap 16.2 (5-19); Aspartate Amino Transferase 16 U/L (0-40); Blood Urea Nitrogen 11 mg/dL (6-20); Calcium 8.9 mg/dL (8.5-10.5); Carbon Dioxide 23 mmol/L (22-29); Chloride 104 mmol/L (98-107); Creatinine Clr Calc Pharmacy 139.2266; Globulin 3.4 g/dL (1.3-4.6); Glucose 128 mg/dL (65-115); Osmolality Calculated 289 mOsm/kg (285-295); Potassium 4.2 mmol/L (3.5-5.1); Sodium 139 mmol/L (136-145); Total Protein 7.3 g/dL (6.6-8.7)
== END 2024-11-11 23:59 | disposition home or self-care (01) ==
PROVIDERS: PCP Registered Nurse; Visit Provider Internal Medicine
DX: I82.412 Acute embolism and thrombosis of left femoral vein (principal)
CPT/HCPCS: 36415; 80053; 83615; 85025; 85378

== ENCOUNTER 2025-01-01 12:37 | Oncology outpatient (recurring) (ONCR) | payer MEDICAID, SELFPAY ==
[2025-01-01 13:13] LABS: Hematocrit 42.8 % (37-53); Hemoglobin 14.10 g/dL (11.27-16.99); Mean Corpuscular HGB Conc 32.9 g/dL (30-55); Mean Corpuscular Hemoglobin 30.1 pg (27-33); Mean Corpuscular Volume 91.3 fl (82-101); Nucleated Red Blood Cells % 0 %; Platelet Count 175 10^3/cmm (157-399); Red Blood Count 4.69 10^6/uL (3.85-5.65); White Blood Count 6.37 10^3/uL (3.29-11.43)
[2025-01-01 13:31] LABS: Alanine Aminotransferase 12 U/L (0-41); Albumin Level 4.1 g/dL (3.5-5.2); Alkaline Phosphatase 82 U/L (40-130); Anion Gap 11.0 (5-19); Aspartate Amino Transferase 14 U/L (0-40); Blood Urea Nitrogen 7 mg/dL (6-20); Calcium 8.8 mg/dL (8.5-10.5); Carbon Dioxide 27 mmol/L (22-29); Chloride 107 mmol/L (98-107); Globulin 2.7 g/dL (1.3-4.6); Glucose 99 mg/dL (65-115); Osmolality Calculated 290 mOsm/kg (285-295); Potassium 4.0 mmol/L (3.5-5.1); Sodium 141 mmol/L (136-145); Total Protein 6.8 g/dL (6.6-8.7)
== END 2025-01-11 23:59 | disposition home or self-care (01) ==
PROVIDERS: Nurse Practitioner Family; PCP Registered Nurse; Visit Provider Internal Medicine
DX: I82.412 Acute embolism and thrombosis of left femoral vein (principal)
CPT/HCPCS: 36415; 80053; 85025; 85378

== ENCOUNTER 2025-01-12 12:01 | Oncology outpatient (recurring) (ONCR) | payer MEDICAID, SELFPAY ==
--- NOTE | 2025-01-12 12:15 | USCV_ITS ---
Jean Patel Age: 54 Gender: M : 1970 Exam Date: 01/12/2025 12:14 Ordering Phys: Gabriela Campbell APRN Technologist: Exam Location: [facility] [place] Indication: hx of dvt HISTORY: Patient has history of. DVT. PROCEDURES: Venous duplex imaging was performed in only the left lower extremity. Serial compression, augmentation maneuvers, and spectral Doppler flow evaluation were performed. FINDINGS: dvt seen in the lt POP vein pt had recent travel, elevated d dimer, hx of dvt on eliquis Comp 10/14/24 CONCLUSIONS Residual non-occlusive DVT Left popliteal similiar to previous. No new thrombus. Remainder of LLE is patent Toro Melissa MD (Electronically Signed) Final Date: 12 January 2025 12:51 S
== END 2025-02-11 23:59 | disposition home or self-care (01) ==
LOC: ONCMED 12:01
PROVIDERS: PCP Registered Nurse; Visit Provider Internal Medicine
DX: I82.432 Acute embolism and thrombosis of left popliteal vein (principal)
CPT/HCPCS: 93971